=== PATIENT | male | born 1960 | race Caucasian/White ===

== ENCOUNTER 2016-08-20 19:06 | Emergency (ER) | payer OTHER ==
[2016-08-20 19:18] VITALS: RESP 18
[2016-08-20] MEDS ORDERED: HYDROmorphone 1 MG/ML 1 ML SYRINGE IVP STA (19:48)
[2016-08-20] MEDS ORDERED: ONDANSETRON 4 MG/2 ML VIAL IVP STA (19:48)
[2016-08-20] MEDS ORDERED: SODIUM CHLORIDE 0.9% 1,000 ML IV STA (19:48)
--- NOTE | 2016-08-20 19:53 | ED ---
General Adult HPI - General Chief complaint: Back Pain/Injury Stated complaint: Abd pain Time Seen by Provider: 08/20/16 19:41 Source: patient, RN notes reviewed Mode of arrival: ambulatory Limitations: no limitations - History of Present Illness Initial comments: 56-year-old male presents emergency Department chief complaint right flank pain. Patient states it started 5 days ago states that he had some cramping in his back region states that he bent over and had sudden onset of stabbing pain. Patient states that after it started nothing made it feel better or worse. He states that over the last 4-5 hours pain is actually's somewhat minimized. He does admit to some darker urine color and follow order. He has no history UTIs or kidney stones. Patient denies any vomiting states he states that some nausea as constipation or diarrhea. Denies fever, chills. Patient had a prior abdominal surgeries including bowel resection, prostate surgery. - Related Data Home Medications Medication Instructions Recorded Confirmed Allopurinol [Zyloprim] 300 mg PO DAILY 09/30/14 08/20/16 Omeprazole [PriLOSEC] 20 mg PO DAILY 09/30/14 08/20/16 Aspirin EC [Ecotrin Low Dose] 81 mg PO DAILY 08/20/16 08/20/16 HYDROcodone/APAP 10-325MG [[place] 1 tab PO BID PRN 08/20/16 08/20/16 10-325] Levothyroxine Sodium 300 mcg PO DAILY 08/20/16 08/20/16 Lisinopril [Zestril] 2.5 mg PO DAILY 08/20/16 08/20/16 Metoprolol Succinate (ER) [Toprol 50 mg PO DAILY 08/20/16 08/20/16 Xl] Simvastatin(Unknown Dose) 1 tab PO DAILY 08/20/16 08/20/16 Previous Rx's Medication Instructions Recorded Nitroglycerin Sl Tabs [Nitrostat] 0.4 mg SUBLINGUAL Q5M PRN #25 tab 10/02/14 Cyclobenzaprine [Flexeril] 10 mg PO TID PRN #15 tab 08/20/16 Ketorolac [Toradol] 10 mg PO Q8HR #15 tab 08/20/16 Allergies Allergy/AdvReac Type Severity Reaction Status Date / Time No Known Allergies Allergy Verified 08/20/16 19:45 Review of Systems ROS Statement: Those systems with pertinent positive or pertinent negative responses have been documented in the HPI. ROS Other: All systems not noted in ROS Statement are negative. Past Medical History Past Medical History: Coronary Artery Disease (CAD), Chest Pain / Angina, Myocardial Infarction ([place]), Prostate Disorder Additional Past Medical History / Comment(s): prostate CA, colostomy reversal, stomach ca, gout, reactive arthritis Last Myocardial Infarction Date:: 09/29/2014 History of Any Multi-Drug Resistant Organisms: None Reported Past Surgical History: Orthopedic Surgery Additional Past Surgical History / Comment(s): stentx1 RCA, colostomy and reversal, knee surg, prostate and stomach ca surg Past Anesthesia/Blood Transfusion Reactions: No Reported Reaction Past Psychological History: No Psychological Hx Reported Smoking Status: Current every day smoker Past Alcohol Use History: None Reported Past Drug Use History: None Reported - Past Family History Father Additional Family Medical History / Comment(s): of ETOH General Exam Limitations: no limitations General appearance: alert, in no apparent distress Head exam: Present: atraumatic, normocephalic, normal inspection Respiratory exam: Present: normal lung sounds bilaterally. Absent: respiratory distress, wheezes, rales, rhonchi, stridor Cardiovascular Exam: Present: regular rate, normal rhythm, normal heart sounds. Absent: systolic murmur, diastolic murmur, rubs, gallop, clicks GI/Abdominal exam: Present: soft, normal bowel sounds, other (Old scars noted). Absent: distended, tenderness, guarding, rebound, rigid Back exam: Present: full ROM, CVA tenderness (R). Absent: tenderness, CVA tenderness (L), paraspinal tenderness, vertebral tenderness Neurological exam: Present: alert, oriented X3, CN II-XII intact Skin exam: Present: warm, dry, intact, normal color. Absent: rash Course Vital Signs 08/20/16 08/20/16 08/20/16 19:14 20:23 21:08 Temperature 98.5 F Pulse Rate 80 68 62 Respiratory 18 18 18 Rate Blood Pressure 120/73 126/84 108/68 O2 Sat by Pulse 98 95 96 Oximetry Medical Decision Making - Medical Decision Making 56-year-old male presented emergency from for right flank pain. Patient laboratory, CT shows no acute abnormality. Patient has had a recent passed stone or has muscle skeletal pain. Patient states it does feel different than his normal back pain. Patient be discharged with pain medication follow-up on Tuesday with primary care physician return parameters were discussed. - Lab Data Result diagrams: 08/20/16 20:05 08/20/16 20:05 Lab Results 08/20/16 08/20/16 08/20/16 Range/Units 20:05 20:05 20:25 WBC 7.8 (3.8-10.6) k/uL RBC 4.89 (4.30-5.90) m/uL Hgb 15.1 (13.0-17.5) gm/dL Hct 40.9 (39.0-53.0) % MCV 83.6 (80.0-100.0) fL MCH 30.9 (25.0-35.0) pg MCHC 36.9 (31.0-37.0) g/dL RDW 13.9 (11.5-15.5) % Plt Count 225 (150-450) k/uL Neutrophils % 48 % Lymphocytes % 42 % Monocytes % 5 % Eosinophils % 2 % Basophils % 0 % Neutrophils # 3.8 (1.3-7.7) k/uL Lymphocytes # 3.3 (1.0-4.8) k/uL Monocytes # 0.4 (0-1.0) k/uL Eosinophils # 0.2 (0-0.7) k/uL Basophils # 0.0 (0-0.2) k/uL Sodium 141 (137-145) mmol/L Potassium 4.2 (3.5-5.1) mmol/L Chloride 110 H (98-107) mmol/L Carbon Dioxide 20 L (22-30) mmol/L Anion Gap 11 mmol/L BUN 12 (9-20) mg/dL Creatinine 0.79 (0.66-1.25) mg/dL Est GFR (MDRD) Af Amer >60 (>60 ml/min/1.73 sqM) Est GFR (MDRD) Non-Af >60 (>60 ml/min/1.73 sqM) Glucose 104 H (74-99) mg/dL Calcium 9.0 (8.4-10.2) mg/dL Total Bilirubin 0.7 (0.2-1.3) mg/dL AST 44 (17-59) U/L ALT 37 (21-72) U/L Alkaline Phosphatase 82 (38-126) U/L Total Protein 7.3 (6.3-8.2) g/dL Albumin 4.1 (3.5-5.0) g/dL Amylase 52 (30-110) U/L Lipase 200 (23-300) U/L Urine Color Yellow Urine Appearance Clear (Clear) Urine pH 5.5 (5.0-8.0) Ur Specific [place] 1.019 (1.001-1.035) Urine Protein Negative (Negative) Urine Glucose (UA) Negative (Negative) Urine Ketones Negative (Negative) Urine Blood Negative (Negative) Urine Nitrite Negative (Negative) Urine Bilirubin Negative (Negative) Urine Urobilinogen 2.0 (<2.0) mg/dL Ur Leukocyte Esterase Negative (Negative) Disposition Clinical Impression: Right flank pain, Back pain Disposition: HOME SELF-CARE Condition: Stable Instructions: Acute Low Back Pain (ED), Flank Pain (ED) Additional Instructions: Please return to the Emergency Department if symptoms worsen or any other concerns. Prescriptions: Cyclobenzaprine [Flexeril] 10 mg PO TID PRN #15 tab PRN Reason: Muscle Spasm Ketorolac [Toradol] 10 mg PO Q8HR #15 tab Referrals: Madan Powell MD [Primary Care Provider] - 1-2 days Time of Disposition: 21:38
[2016-08-20 20:23] LABS: Basophils % (A) 0 %; CH 30.6; CHCM 36.7; Eosinophils # (A) 0.2 k/uL (0-0.7); Eosinophils % (A) 2 %; HCT 40.9 % (39.0-53.0); HDW 2.99; HGB 15.1 gm/dL (13.0-17.5); Luc # (Auto) 0.15; Luc % (Auto) 2; Lymphocytes # (A) 3.3 k/uL (1.0-4.8); Lymphocytes % (A) 42 %; MCH 30.9 pg (25.0-35.0); MCHC 36.9 g/dL (31.0-37.0); MCV 83.6 fL (80.0-100.0); Mean Platelet Volume 6.9; Monocytes # (A) 0.4 k/uL (0-1.0); Monocytes % (A) 5 %; Neutrophils # (A) 3.8 k/uL (1.3-7.7); Neutrophils % (A) 48 %; RBC 4.89 m/uL (4.30-5.90); RDW 13.9 % (11.5-15.5); WBC 7.8 k/uL (3.8-10.6); WBC (Perox) 7.17
--- NOTE | 2016-08-20 20:35 | XR ---
EXAMINATION TYPE: XR KUB DATE OF EXAM: 08/20/2016 COMPARISON: NONE HISTORY: Pain TECHNIQUE: 2 views FINDINGS: There is no sign of intestinal obstruction or pneumoperitoneum. Fecal pattern is normal. Th ere are numerous surgical clips in the pelvis. Lung bases are clear. There are no pathologic calcific ations over the kidneys. IMPRESSION: Nonacute abdomen.
[2016-08-20 20:36] LABS: ALT 37 U/L (21-72); AST 44 U/L (17-59); Alkaline Phosphatase 82 U/L (38-126); Amylase 52 U/L (30-110); Anion Gap 11 mmol/L; Blood Urea Nitrogen 12 mg/dL (9-20); Carbon Dioxide 20 mmol/L (22-30); Chloride 110 mmol/L (98-107); Glucose 104 mg/dL (74-99); Non-African American GFR(MDRD) >60 (>60 ml/min/1.73 sqM); Potassium 4.2 mmol/L (3.5-5.1); Sodium 141 mmol/L (137-145); Total Bilirubin 0.7 mg/dL (0.2-1.3); Total Protein 7.3 g/dL (6.3-8.2)
[2016-08-20 20:41] LABS: Appearance,Urine Clear (Clear); Bilirubin,Urine Negative (Negative); Glucose,Urine (UA) Negative (Negative); Ketones,Urine Negative (Negative); Leukocyte Esterase,Urine Negative (Negative); Nitrite,Urine Negative (Negative); PH, Urine 5.5 (5.0-8.0); Protein,Urine Negative (Negative); Specific Gravity,Urine 1.019 (1.001-1.035); UA Billing (MACRO vs. MICRO) CHEM
--- NOTE | 2016-08-20 21:08 | CT ---
EXAMINATION TYPE: CT abdomen pelvis wo con DATE OF EXAM: 08/20/2016 COMPARISON: NONE HISTORY: Right flank pain. CT DLP: 1260.50 mGycm Automated exposure control for dose reduction was used. TECHNIQUE: Helical acquisition of images was performed from the lung bases through the pelvis. FINDINGS: Lung bases are clear. There is no pleural effusion. Liver spleen pancreas gallbladder appear normal. Bile ducts are not dilated. There is no adrenal mass . Kidneys have normal size and contour. There is no hydronephrosis. There is no retroperitoneal adeno lucrecia. There is no ascites. Appendix appears normal. There are surgical clips in the rectosigmoid col on. Bladder distends smoothly. There is no free fluid. I see no bony destructive process. There is a hemivertebra of S1 noted. IMPRESSION: NORMAL APPENDIX. NO EVIDENCE OF RENAL STONE OR OBSTRUCTION. NO SIGN OF ACUTE ABDOMEN AND PELVIS.
[2016-08-20 22:13] VITALS: BP 114/59; PULSE 61; TEMP 97.7
== END 2016-08-20 22:13 | disposition home or self-care (01) ==
LOC: EC 19:06
DX: R10.9 Unspecified abdominal pain (principal); M54.9 Dorsalgia, unspecified; M10.9 Gout, unspecified; I25.10 Atherosclerotic heart disease of native coronary artery without angina pectoris; I25.2 Old myocardial infarction; F17.200 Nicotine dependence, unspecified, uncomplicated; Z85.028 Personal history of other malignant neoplasm of stomach; Z85.46 Personal history of malignant neoplasm of prostate; Z79.82 Long term (current) use of aspirin; Z79.899 Other long term (current) drug therapy
CPT/HCPCS: 99284; 96374; 96375; 96361; 36415; 80053; 82150; 83690; 85025; 81003; 74000; 74176; J2405; J1170

== ENCOUNTER → 2016-08-24 | Outpatient (CLI) | payer OTHER ==
--- NOTE | 2016-08-25 11:36 | CONS ---
DATE OF SERVICE: 08/24/2016 This is a very pleasant 56-year-old gentleman who follows with Dr. Powell as his primary care physician. He has a history of coronary artery disease with previous stent placement, myocardia infarction, hypothyroidism, prostate cancer , status post prostatectomy. He also had a bowel resection secondary to a ruptured bowel with colostomy and subsequent colostomy reversal. He also has arthritis and gout. The patient was diagnosed with obstructive sleep apnea with an AHI of 82 and he has been on a pressure of 13. This was many years ago. Unfortunately, the patient wore his CPAP machine for several months and actually improved quite significantly and based on this, he stopped wearing the machine for over a year. The last six months or so, he has been having significant trouble sleeping at night. He tried to reapply the CPAP machine and mask but the pressure was too high and he was not able to tolerate it. He is here for reconsultation in hopes of getting back on a CPAP machine. His main complaints at this time are waking up tired, problems with concentration, irritability, depression, anxiety and worries about his sleep pattern because he is truly not sleeping. He has had excessive fatigue and sleepiness. He does have snoring and nocturia. He does have issues with dry mouth and restless legs. Past medical history is coronary artery disease with stent placement, obstructive sleep apnea, prostate cancer, status post prostatectomy and hypothyroidism. Past surgical history includes stent placement, colostomy with subsequent reversal, knee surgery, prostatectomy, and stomach surgery. SOCIAL HISTORY: The patient is a current everyday smoker, he denies excessive alcohol use or illicit drug use. Allergies are no known allergies. HOME MEDICATIONS: Toradol 10 mg, Flexeril 10 mg t.i.d. p.r.n., Nitrostat sublingual p.r.n., simvastatin unsure of dose, one tablet daily, Zyloprim 300 mg daily, Prilosec 20 mg daily, aspirin 81 mg daily, [place] 10-325 mg 1 p.o. b.i.d., levothyroxine 300 mcg daily, Zestril 2.5 mg daily, metoprolol 50 mg daily. REVIEW OF SYSTEMS: A 14-point review of systems was conducted, all negative other than what is mentioned in the HPI. On physical exam, the patient is 5 foot 10 inches, he weights 274 pounds, BMI of 39, blood pressure 132/77, heart rate 92, respirations 16, temperature is 97.8. He is 98% O2 saturation on room air. His head is normocephalic, sclerae is nonicteric. There is ( ) in the posterior pharynx. His neck is short, supple, trachea midline. Lungs are clear , heart is regular, abdomen is obese, soft, nontender. There is no clubbing, no cyanosis, peripheral pulses are intact. IMPRESSION: 1. Obstructive sleep apnea with an apnea-hypopnea index of 82, was initially on the CPAP of 13 cm of water; however, patient has not worn it in greater than 1 year. 2. Obesity. 3. Coronary artery disease with previous stent placement. 4. History of prostate cancer, status post prostatectomy. 5. Hypothyroidism. 6. Hyperlipidemia. 7. Hypertension. 8. History of bowel perforation with subsequent resection and colostomy and followup reversal. 9. Arthritis. 10. Chronic ongoing tobacco dependence. PLAN: The patient was seen and evaluated by Dr. Chambers and the patient is having symptoms and willing to have a CPAP titration study so that he can get realigned with his CPAP machine. The patient states he will be much more compliant once he is refitted with a new mask, probably a new machine and possibly new settings. He will come for 1 night titration and then a followup for which he states he will plan to do as he does have a history of noncompliance with previous followup. In the interim, will continue with his current medication. Will keep his CPAP machine for now and will put him on a schedule as soon as possible. MILA
== END ==
LOC: SLEEP 15:00
PROVIDERS: ATTEND Internal Medicine Critical Care Medicine
DX: G47.33 Obstructive sleep apnea (adult) (pediatric) (principal); E66.9 Obesity, unspecified; E03.9 Hypothyroidism, unspecified; E78.5 Hyperlipidemia, unspecified; I10 Essential (primary) hypertension; M19.90 Unspecified osteoarthritis, unspecified site; Z90.89 Acquired absence of other organs; Z79.899 Other long term (current) drug therapy; Z79.82 Long term (current) use of aspirin
CPT/HCPCS: 99211

== ENCOUNTER → 2016-11-23 | Outpatient (CLI) | payer OTHER ==
--- NOTE | 2016-11-23 15:58 | PN ---
PROGRESS NOTE The patient is coming in for a compliancy check. This patient was diagnosed having severe BRETT with an AHI of 82 and currently utilizing CPAP with a pressure of 30 cm of water. He underwent recent titration, coming in for a CPAP compliance evaluation. On today's evaluation, the patient is coming in for his CPAP compliancy evaluation. He is doing well and reports improved sleep quality. He is waking up refreshed and alert during the day. No major hypersomnia or sleepiness. His CPAP pressures at 13 cm of water. His compliance data showed that he has used CPAP for more than 4 hours 29 out of 30 days and his average CPAP is around 5.7 hours per night. Leak factor is 10 L and the patient's AHI is down to 0.8. He has not gained any weight since his last evaluation. He is trying to lose weight. His [place] score is down to 3. He is utilizing a Simplus full face mask. He is benefitting from the treatment. He has no specific complaints. He is wondering whether we can lower the CPAP pressure down to lower levels. His current vital signs: BP is 122/70, pulse 83, respirations 16, temperature 97.5, weight is 290. Saturation is 95% on room air. [place] score 3. General appearance calm comfortable. HEENT short neck, crowding posterior pharynx. No goiter. No neck mass. Lungs clear to auscultation. Heart sounds are regular rate and rhythm. Normal S1, S2. No S3, S4. No murmurs. Abdomen is soft, nontender. No organomegaly. EXTREMITIES: No edema. No cyanosis or clubbing. Neuro: Alert x3. No focal neurological deficits. Psych is negative for anxiety or depression. His mood is appropriate. IMPRESSION: 1. Symptomatic obstructive sleep apnea severe with an AHI of 82, currently under successful therapy CPAP therapy at a pressure of 13 cm of water. The choice of the pressure was done during the recent CPAP titration. The patient has obtained a new Resmet CPAP unit. 2. Morbid obesity. 3. Coronary artery disease. 4. Prostate cancer. 5. Hypothyroidism. 6. Periodic limb movements. PLAN: 1. Recheck the CPAP titration and lower the pressure down to 11 cm of water. 2. Continue the Simplus full face mask. 3. Encourage weight loss. 4. Add humidity up to 4. 5. Drop the REM time down to 20 minutes. 6. Give the patient heated humidity. 7. We will continue to follow. See me back in a year's time in follow up, earlier if needed. MMODL / IJN: [id number] /
== END ==
LOC: SLEEP 14:05
PROVIDERS: ATTEND Internal Medicine Critical Care Medicine
DX: G47.33 Obstructive sleep apnea (adult) (pediatric) (principal); E66.01 Morbid (severe) obesity due to excess calories; C61 Malignant neoplasm of prostate; E03.9 Hypothyroidism, unspecified; I25.10 Atherosclerotic heart disease of native coronary artery without angina pectoris; G47.61 Periodic limb movement disorder

== ENCOUNTER 2019-09-12 17:49 | Emergency (ER) | payer OTHER ==
[2019-09-12 17:58] VITALS: TEMP 98.1
--- NOTE | 2019-09-12 18:02 | ED ---
General Adult HPI - General Chief complaint: Extremity Injury, Upper Stated complaint: left wrist injury Time Seen by Provider: 09/12/19 18:00 Source: patient Mode of arrival: wheelchair Limitations: no limitations - History of Present Illness Initial comments: Patient presents the ED stating that he accidentally tripped when he stepped into a hole in the ground about 1.5 hours ago, causing him to fall down. Patient states that he used his left arm to break his fall, and in doing so, his left wrist "snapped". Patient is complaining of having diffuse left wrist pain since then. Patient denies sustaining any other injuries, and he denies having any other site of pain. Patient denies head injury, headache, focal neuro deficit, neck/back/lower show any pain, chest pain, dyspnea, dizziness, abdominal pain, nausea/vomiting, or any other symptoms or complaints. - Related Data Home Medications Medication Instructions Recorded Confirmed Allopurinol [Zyloprim] 300 mg PO BID 09/30/14 09/12/19 Omeprazole [PriLOSEC] 20 mg PO DAILY 09/30/14 09/12/19 Aspirin EC [Ecotrin Low Dose] 81 mg PO DAILY 08/20/16 09/12/19 HYDROcodone/APAP 10-325MG [[place] 1 tab PO BID 08/20/16 09/12/19 10-325] Metoprolol Succinate (ER) [Toprol 50 mg PO DAILY 08/20/16 09/12/19 Xl] lisinopriL [Zestril] 2.5 mg PO DAILY 08/20/16 09/12/19 Levothyroxine Sodium [Synthroid] 200 mcg PO DAILY 09/12/19 09/12/19 Rosuvastatin Calcium [Crestor] 2.5 mg PO DAILY 09/12/19 09/12/19 Allergies Allergy/AdvReac Type Severity Reaction Status Date / Time No Known Allergies Allergy Verified 09/12/19 18:48 Review of Systems ROS Statement: Those systems with pertinent positive or pertinent negative responses have been documented in the HPI. ROS Other: All systems not noted in ROS Statement are negative. Past Medical History Past Medical History: Coronary Artery Disease (CAD), Chest Pain / Angina, Myocardial Infarction ([place]), Prostate Disorder Additional Past Medical History / Comment(s): prostate CA, colostomy reversal, stomach ca, gout, reactive arthritis Last Myocardial Infarction Date:: 09/29/2014 History of Any Multi-Drug Resistant Organisms: None Reported Past Surgical History: Orthopedic Surgery Additional Past Surgical History / Comment(s): stentx1 RCA, colostomy and reversal, knee surg, prostate and stomach ca surg Past Anesthesia/Blood Transfusion Reactions: No Reported Reaction Past Psychological History: No Psychological Hx Reported Smoking Status: Current every day smoker Past Alcohol Use History: Rare Past Drug Use History: None Reported - Past Family History Father Additional Family Medical History / Comment(s): of ETOH General Exam Limitations: no limitations General appearance: alert, in no apparent distress Head exam: Present: atraumatic, normocephalic Eye exam: Present: normal appearance, EOMI ENT exam: Present: mucous membranes moist Neck exam: Absent: tenderness Respiratory exam: Present: normal lung sounds bilaterally. Absent: respiratory distress, wheezes, rales, rhonchi Cardiovascular Exam: Present: regular rate, normal rhythm, normal heart sounds, other (Normal radial pulses bilaterally) GI/Abdominal exam: Present: soft. Absent: distended, tenderness, guarding Extremities exam: Present: other (Diffuse left wrist swelling and tenderness) Back exam: Present: normal inspection. Absent: tenderness Neurological exam: Present: alert, oriented X3. Absent: motor sensory deficit Psychiatric exam: Present: normal affect, normal mood Skin exam: Present: warm, dry, intact, normal color Course Vital Signs 09/12/19 09/12/19 09/12/19 17:54 17:58 18:58 Temperature 98.1 F Pulse Rate 83 83 Respiratory 18 18 18 Rate Blood Pressure 92/62 121/78 O2 Sat by Pulse 97 96 Oximetry 09/12/19 09/12/19 09/12/19 20:14 20:19 20:24 Temperature Pulse Rate 79 84 79 Respiratory 19 18 18 Rate Blood Pressure 121/78 128/78 124/76 O2 Sat by Pulse 98 99 99 Oximetry 09/12/19 20:29 Temperature Pulse Rate 84 Respiratory 19 Rate Blood Pressure 131/69 O2 Sat by Pulse 99 Oximetry - Reevaluation(s) Reevaluation #1: 09/12/19 19:35 Case, H&P and left wrist x-ray findings were discussed with Dr. Perez (orthopedic surgery). He has reviewed the patient's films himself. He recommends attempting to reduce the patient's distal radius fracture under sedation. He recommends then obtaining a CT scan of the patient's left wrist. He has no further recommendations at this time. 09/12/19 19:[address] Perez and his recommendations were discussed with the patient. I have discussed with the patient the option for reduction under moderate sedation versus with hematoma block. Patient states that he prefers reduction under moderate sedation. Patient was explained the risks of moderate sedation, and he was able to verbalize understanding of these risks. Patient has signed consent form for fracture reduction under moderate sedation. 09/12/19 21:36 Case was discussed with Dr. Perez once more. He recommends discharging the patient home and having the patient follow-up with him in his clinic tomorrow. He has no further recommendations at this time. 09/12/19 21:44 Patient and his friend are aware the patient's imaging results and my discussions with Dr. Perez as above. Patient feels comfortable going home with his friend at this time. He was counseled about wrist fractures. He was clearly explained return and follow-up instructions. He was instructed to follow up with Dr. Perez in his clinic tomorrow and to call in the morning for an appointment time. Procedures - Orthopedic Fracture Reduction Fracture #1 Consent Obtained: verbal consent, written consent Side: left Fracture Reduction Location: radius Analgesia: procedural sedation Technique: direct manipulation Post Reduction X-rays Demonstrate: acceptable reduction Post-Reduction Neuro Exam: intact Post-Reduction Vascular Exam: intact Splint Applied: Yes Patient Tolerated Procedure: well, no complications - Procedural Sedation Procedural Sedation Start Time: 20:14 Procedural Sedation Stop Time: 20:24 Indications: fracture/dislocation reduction ASA Class: II Mallampati Airway Score: 2 Preparation: court recording monitor applied, pulse oximeter, capnometry used, supplemental O2 applied, suction/airway equipment at bedside, IV secured Fentanyl: IV Fentanyl Dose: 75 IV Propofol Dose (mgs): 120 Complications: none Patient Tolerated Procedure: well, no complications Additional Comments: Patient was unsure of last PO intake, but he reports that it was several hours ago. Medical Decision Making - Medical Decision Making Patient's wrist fractures were reduced and splinted myself in the ED. Patient has recovered completely from his procedural sedation. Will discharge patient home with his friend at this time. Patient was instructed to, and agrees to, follow-up with orthopedic surgery as an outpatient tomorrow. - Radiology Data Radiology results: report reviewed (Left wrist x-rays: Comminuted distal left radial fracture with displaced fracture fragments; there is some dorsal angulation; displaced ulnar styloid fracture; CT left wrist without contrast: Distal radial fractures are comminuted and displaced, displaced ulnar styloid fracture ) Disposition Clinical Impression: Left wrist fracture Disposition: HOME SELF-CARE Condition: Stable Instructions (If sedation given, give patient instructions): Moderate Sedation (ED), Wrist Injury (ED) Additional Instructions: Return to the ER immediately should you develop new or worsening pain, a fever, chest pain, shortness of breath, feeling dizzy or faint, or new or worsening symptoms. Follow up with Dr. Perez (orthopedic surgery) in his clinic tomorrow (call in the morning for an appointment). Is patient prescribed a controlled substance at d/c from ED?: No Referrals: Mahamed English MD [Primary Care Provider] - 1-2 days Ernst Perez MD [STAFF PHYSICIAN] - 1-2 days Time of Disposition: 21:47
--- NOTE | 2019-09-12 18:40 | XR ---
Left wrist HISTORY: Trauma and pain 4 views the left wrist There is a comminuted distal left radial fracture with displaced fracture fragments, likely extension into the radial ulnar joint, radiocarpal joint extension not entirely excluded. There is some dorsal angulation, displaced ulnar styloid fracture is present. Osteoarthritic changes are noted incidental ly at the carpometacarpal joint of the first digit. IMPRESSION: Left wrist fractures
[2019-09-12] MEDS ORDERED: oxyCODONE-APAP 5-325MG 1 EACH TAB PO STA (19:07)
[2019-09-12] MEDS ORDERED: SODIUM CHLORIDE 0.9% 500 ML 500 ML IV ONE (19:46)
[2019-09-12] MEDS ORDERED: PROPOFOL 10 MG/ML 20 ML VIAL IV ONE ×2 (20:02→20:14)
[2019-09-12] MEDS ORDERED: fentaNYL (PF) 50 MCG/ML 2 ML AMP IVP STA (20:03)
--- NOTE | 2019-09-12 21:27 | CT ---
EXAMINATION TYPE: CT wrist LT wo con DATE OF EXAM: 09/12/2019 COMPARISON: Plain film same date HISTORY: left wrist pain CT DLP: 262.5 mGycm Automated exposure control for dose reduction was used. FINDINGS: Comminuted distal radial fracture with displaced distal ulnar fracture again noted, no evident intra- articular involvement. There is soft tissue swelling present. Slight impaction is noted laterally. IMPRESSION: DISTAL RADIAL FRACTURES ARE COMMINUTED AND DISPLACED, DISPLACED ULNAR STYLOID FRACTURE
[2019-09-12] MEDS ORDERED: HYDROmorphone 1 MG/ML 1 ML SYRINGE IVP STA (21:30)
[2019-09-12] MEDS ORDERED: ACET/COD 300 MG/30 MG STARTER PACK 6 TAB BTL PO STA (21:46)
[2019-09-12 22:40] VITALS: BP 136/98; PULSE 79; RESP 18
== END 2019-09-12 21:55 | disposition home or self-care (01) ==
LOC: EC 17:49
DX: S52.592A Other fractures of lower end of left radius, initial encounter for closed fracture (principal); S52.612A Displaced fracture of left ulna styloid process, initial encounter for closed fracture; I25.119 Atherosclerotic heart disease of native coronary artery with unspecified angina pectoris; I25.2 Old myocardial infarction; F17.200 Nicotine dependence, unspecified, uncomplicated; M10.9 Gout, unspecified; Z79.82 Long term (current) use of aspirin; Z79.899 Other long term (current) drug therapy; Z85.46 Personal history of malignant neoplasm of prostate; Z85.028 Personal history of other malignant neoplasm of stomach; W01.0XXA Fall on same level from slipping, tripping and stumbling without subsequent striking against object, initial encounter; Y92.89 Other specified places as the place of occurrence of the external cause
CPT/HCPCS: 73110; 73200; 99284; 96374; 96375 ×2; 96361; 25605; 99152; J3010; J1170; J2704

== ENCOUNTER → 2019-09-21 | Outpatient (CLI) | payer OTHER | END | disposition home or self-care (01) | LOC: LABWHC1 10:30 | PROVIDERS: ATTEND Orthopaedic Surgery | DX: E55.9 Vitamin D deficiency, unspecified (principal) | CPT/HCPCS: 36415; 82306 ==

== ENCOUNTER → 2019-09-21 | Day surgery (SDC) | payer OTHER ==
[~2019-09-21] MED LIST: DEXAMETHASONE SOD PHOSPHATE 10 MG/ML 1 ML VIAL IV ONE; DEXAMETHASONE SOD PHOSPHATE 4 MG/ML 1 ML VIAL ONE; FAMOTIDINE 20 MG/2 ML VIAL IV PRN; GLYCOPYRROLATE 0.2 MG/ML 2 ML VIAL ONE; HYDROcodone/APAP 10-325MG 1 EACH TAB ONE; HYDROcodone/APAP 10-325MG 1 EACH TAB PO ONE; HYDROmorphone (PF) 1 MG/ML ONE; HYDROmorphone 0.5 MG/0.5 ML SYRINGE IVP PRN; LACTATED RINGERS 1,000 ML IV SCH; LIDOCAINE 1% (10MG/ML) FOR IV START INTRADERMA PRN; LIDOCAINE 1% INJ 10MG/ML (20 ML MDV) ONE; LIDOCAINE 1%-EPI 1:100,000 20 ML VIAL SQ ONE; METOPROLOL SUCCINATE (ER) 50 MG TAB.ER.24H PO STA; MIDAZOLAM 2 MG/2 ML VIAL IV PRN; MIDAZOLAM 2 MG/2 ML VIAL ONE; NEOSTIGMINE 1 MG/ML 10 ML VIAL ONE; ONDANSETRON 4 MG/2 ML VIAL IVP PRN; ONDANSETRON 4 MG/2 ML VIAL ONE; PROPOFOL 10 MG/ML 20 ML VIAL IV ONE; ROCURONIUM BROMIDE 10 MG/ML 5 ML VIAL IV ONE; ROPIVACAINE 5 MG/ML 30 ML VIAL ONE; SODIUM CHLORIDE 0.9% 50 ML with ceFAZolin 1,000 MG IV ONE; fentaNYL (PF) 50 MCG/ML 2 ML AMP IV ONE; fentaNYL (PF) 50 MCG/ML 2 ML AMP ONE
[2019-09-21] MEDS: fentaNYL (PF) 50 MCG/ML 2 ML AMP IVP PRN ×2 (12:30→13:33)
--- NOTE | 2019-09-21 12:51 | P.ANPRN ---
Procedure Note - Anesthesia - Nerve Block Performed Left Infraclavicular Single Time Out Performed: Yes Date of Procedure: 09/21/19 Procedure Start Time: : Procedure Stop Time: : Location of Patient: PreOp Indication: Requested by Surgeon Specifically requested for management of pain by DrTrue: Keven Mensah Sedation Type: Sedate with meaningful contact maintained Preparation: Sterile Prep Position: Supine Needle Types: Pajunk Needle Gauge: 20, 21 Ultrasound used to visualize needle placement: Yes Ultrasound used to observe medication spread: Yes Injectate: 0.5% Ropivacaine (see comment for volume) (30 ml + 4 mg Dexamethason) Blood Aspirated: No Pain Paresthesia on Injection Noted: No Resistance on Injection: Normal Image Stored and Saved: Yes Events: Uneventful and Well Tolerated
[2019-09-21 16:17] VITALS: TEMP 96.8
[2019-09-21 17:06] VITALS: RESP 17
[2019-09-21 18:27] VITALS: BP 144/88; PULSE 88
--- NOTE | 2019-09-21 18:50 | XR ---
EXAMINATION TYPE: XR wrist complete LT DATE OF EXAM: 09/21/2019 COMPARISON: 09/12/2019 HISTORY: Postop TECHNIQUE: 3 views FINDINGS: There is a plate with screws fixing anteriorly the fracture of the distal radius. Fragments are in good anatomic position. There is ulnar styloid process fracture unchanged. IMPRESSION: There is good anatomic reduction of the radius fracture. No complicating process seen.
--- NOTE | 2019-09-21 20:43 | FL ---
EXAMINATION TYPE: FL guidance operating room DATE OF EXAM: 09/21/2019 COMPARISON: NONE HISTORY: ORIF left wrist TECHNIQUE: Fluoroscopy. FINDINGS: Fluoroscopic guidance was provided during procedure for performing physician. A total of 22 seconds of fluoroscopic time was utilized during the procedure and 0 spot images was acquired. Ple ase see operative report for additional details. IMPRESSION: As Above.
--- NOTE | 2019-09-21 21:47 | XR ---
EXAMINATION TYPE: XR wrist complete LT DATE OF EXAM: 09/21/2019 COMPARISON: NONE HISTORY: Postop TECHNIQUE: 4 views submitted FINDINGS: Fractures involving the distal radius and ulna again noted with postsurgical changes which appear to be in near anatomic alignment. IMPRESSION: Postsurgical change
--- NOTE | 2019-09-23 11:06 | P.OP ---
Date of Procedure: 09/21/19 Preoperative Diagnosis: Comminuted, displaced intra-articular left distal radius fracture with associated ulnar styloid fracture Postoperative Diagnosis: Comminuted, displaced intra-articular left distal radius fracture with associated ulnar styloid fracture Procedure(s) Performed: Open reduction and internal fixation of displaced intra-articular left distal radius fracture (>3 fragments: CPT 41962) Implants: Acumed Acu-Loc 2 volar distal radius plate (left, standard) with locking and cortical screws Anesthesia: MAGDALENOA, regional Surgeon: Keven Mensah Cottrell Operator #1: Lulu Burnette Estimated Blood Loss (ml): 10 Condition: stable Disposition: PACU Indications for Procedure: The patient is a 59-year-old male who sustained an injury to his left wrist after a mechanical fall, resulting in a displaced distal radius fracture. This was initially treated with closed reduction and splinting at an outside institution. Treatment options (along with associated risks and benefits) were discussed in the office. Based on the fracture pattern and amount of residual displacement, surgical stabilization was recommended in the form of open reduction and internal fixation. The patient expressed understanding and agreed with operative intervention. In preop, additional questions were addressed and the patient wished to proceed with surgery. Consent forms were signed. The surgical site was confirmed and marked preoperatively. Description of Procedure: The patient was administered a regional nerve block by the anesthesia team and was then brought to the operating suite and positioned supine with the operative limb on an arm board. All bony prominences were well-padded. General anesthesia and prophylactic antibiotics were administered uneventfully. A tourniquet was placed on the operative arm, which was then prepped and draped in standard, sterile fashion. A time-out was performed, confirming patient identifiers, the operative side, site and the procedure to be performed: all team members expressed agreement. The limb was exsanguinated with an Esmarch and the tourniquet was inflated. A volar FCR approach was utilized. The skin was incised sharply incised, curving gently at the wrist flexion crease. The subcutaneous tissues were spread, coagulating superficial vessels as needed. The radial artery was identified and protected throughout the case. The FCR sheath was released and the tendon was mobilized. The floor of the sheath was incised and blunt dissection was used to develop Paronas space. The pronator quadratus was identified but showed anatomic variation, with a tendinous band running longitudinally along its superficial/volar aspect, ending at the wrist capsule. There was a transverse rupture in the belly of the pronator at the level of the fracture. This was sharply extended along its radial border and & subperiosteally elevated ulnarly. The transitional fiber zone was sharply elevated distally. The fracture site was visualized. The primary fracture line was transverse across the metaphysis, with intra- articular extension into the proximal portion of the sigmoid notch with incongruity of the articular surface. There was a small butterfly fragment of the volar metaphysis and a larger fragment dorsally. The fracture site was opened and cleaned of hematoma and fibrous tissue. A manual reduction was attempted but the fracture was quite stiff and resistant to external reduction maneuvers. A Portage was inserted into the fracture site to release the dorsal capsule and impacted dorsal metaphysis, taking care to protect the extensor tendons. The volar metaphyseal butterfly fragment was reduced into place with a dental pick. A 0.062 K wire was inserted percutaneously into the radial styloid. The fracture was again manually reduced and the wire was advanced across the fracture and into metaphysis. This did not adequately maintain the radial height. The wire was backed out across the fracture site and a second wire was inserted into the styloid fragment. The wrist was maximally ulnar deviated and a Bishnu Kleinert elevator was used to mobilize and elevate the radial column. With the fracture held reduced, the percutaneous K wires were readvanced. The plate was selected (based on the patients anatomy and fracture pattern), positioned on the volar radius and provisionally pinned in place with K-wires. Plate position and fracture reduction were assessed on imaging. There was mild residual loss of radial column length, as well as some residual dorsal tilt. A subtle step-off was also noted along the volar metaphyseal cortex. The distal K wires were removed. The percutaneous wires were backed out across the fracture site. Using the plate as a reduction tool, the fracture was remanipulated and the wires were readvanced. Fracture reduction and plate position were assessed on imaging and found to be satisfactory. A cortical screw was drilled, measured and inserted into the oblong hole of the shaft. Distal locking screws were sequentially drilled, measured and inserted, confirming length and trajectory with fluoroscopy. Care was taken not to violate the intact portions of the dorsal cortex. Overall, the bone quality was quite good with fairly strong cortices. The provisional K-wires were removed. An additional cortical screw was drilled and inserted to further secure the plate to the metaphysis. The percutaneous K wires were removed. Final x-rays were obtained, including a 20 inclined lateral view, confirming extra-articular screw placement. The wrist was then ranged under live fluoroscopy - no motion of the fracture fragments or fixation construct was appreciated. Manual stress of the DRUJ demonstrated no gross instability. The wound was thoroughly irrigated with normal saline. The pronator and transitional fiber zone were repaired over the plate with interrupted Vicryl 2-0 sutures. The tourniquet was released after 82 minutes at 250 mmHg. Good hemostasis was obtained with manual pressure and electrocautery. The subcutaneous tissues were reapproximated with interrupted 3-0 Vicryl sutures. The incision was closed with interrupted 3-0 Nylon sutures. Local anesthetic with epinephrine was injected into the perioperative subcutaneous tissues for adjunct postoperative pain control and hemostasis. A sterile dressing was applied, followed by a resting volar plaster splint. All sponge, needle and instrument counts were correct at the end of the case. The patient tolerated the procedure well and was taken to the recovery room in stable condition.
== END ==
LOC: OR 11:06
PROVIDERS: ATTEND Orthopaedic Surgery
DX: S52.572A Other intraarticular fracture of lower end of left radius, initial encounter for closed fracture (principal); S52.612A Displaced fracture of left ulna styloid process, initial encounter for closed fracture; I11.9 Hypertensive heart disease without heart failure; I25.10 Atherosclerotic heart disease of native coronary artery without angina pectoris; E78.5 Hyperlipidemia, unspecified; E03.9 Hypothyroidism, unspecified; G47.33 Obstructive sleep apnea (adult) (pediatric); G89.29 Other chronic pain; E66.9 Obesity, unspecified; M19.90 Unspecified osteoarthritis, unspecified site; K21.9 Gastro-esophageal reflux disease without esophagitis; F17.210 Nicotine dependence, cigarettes, uncomplicated; Z79.82 Long term (current) use of aspirin; Z79.890 Hormone replacement therapy; Z79.899 Other long term (current) drug therapy; Z90.49 Acquired absence of other specified parts of digestive tract; Z85.46 Personal history of malignant neoplasm of prostate; Z99.89 Dependence on other enabling machines and devices; W01.0XXA Fall on same level from slipping, tripping and stumbling without subsequent striking against object, initial encounter; Z68.39 Body mass index [BMI] 39.0-39.9, adult
CPT/HCPCS: 25609; 64415; 76942; 84132; 73110; C1713; J2250; J1100 ×2; J2710; J0690 ×2; J2405; J2001; J3010; J1170 ×2; J2795; J2704; 64450

== ENCOUNTER 2022-01-28 20:45 | Inpatient (IN) | payer OTHER ==
[2022-01-28] MEDS ORDERED: ASPIRIN 81 MG PO STA (21:48)
--- NOTE | 2022-01-28 21:53 | ED ---
General Adult HPI - General Chief complaint: Chest Pain Stated complaint: Chest pain Time Seen by Provider: 01/28/22 21:37 Source: patient Mode of arrival: ambulatory Limitations: no limitations - History of Present Illness Initial comments: This patient is a 61-year-old man who presents with a constellation of symptoms that started last night when he was trying to go to sleep. The patient stated that it felt like his heart was racing. He states it was difficult for him to get to sleep but he finally did sleep. He was feeling better in the morning and then the racing heartbeat return in the morning. He went to the pharmacy and had his blood pressure and heart rate checked and he states his heart rate was in the 150s. The pharmacist made a recommendation that he take an extra tablet of his beta adan and that he should probably go to the emergency department to be checked. The patient did take an extra dose of the medication, and his heart rate had slowed to the 90s but then the symptoms recurred. The patient has at times had some heaviness in the center of his chest but he is not having pain now. He notes that by arrival here his heart rate had gone back down. Onset/Timin -: hour(s) Location: chest Severity scale (1-10): 0 Consistency: now resolved Improves with: medication Worsens with: none Associated Symptoms: chest pain, shortness of breath Treatments Prior to Arrival: other (Metoprolol XL) - Related Data Home Medications Medication Instructions Recorded Confirmed Omeprazole [PriLOSEC] 20 mg PO DAILY 09/30/14 01/29/22 allopurinoL [Zyloprim] 600 mg PO DAILY 09/30/14 01/29/22 Aspirin EC [Ecotrin Low Dose] 81 mg PO DAILY 08/20/16 01/29/22 HYDROcodone/APAP 10-325MG [[place] 1 tab PO TID 08/20/16 01/29/22 10-325] Metoprolol Succinate (ER) [Toprol 50 mg PO DAILY 08/20/16 01/29/22 XL] lisinopriL [Zestril] 2.5 mg PO DAILY 08/20/16 01/29/22 Levothyroxine Sodium [Synthroid] 200 mcg PO [id number] 09/12/19 01/29/22 Albuterol Inhaler [Ventolin Hfa 1 - 2 puff INHALATION RT-QID PRN 01/29/22 01/29/22 Inhaler] Previous Rx's Medication Instructions Recorded Atorvastatin [Lipitor] 40 mg PO DAILY #30 tab 01/31/22 Isosorbide Mononitrate ER [Imdur] 30 mg PO DAILY #30 tab 01/31/22 Nitroglycerin Sl Tabs [Nitrostat] 0.4 mg SUBLINGUAL Q5M PRN #30 tab 01/31/22 Allergies Allergy/AdvReac Type Severity Reaction Status Date / Time No Known Allergies Allergy Verified 01/29/22 07:06 Review of Systems ROS Statement: Those systems with pertinent positive or pertinent negative responses have been documented in the HPI. ROS Other: All systems not noted in ROS Statement are negative. Constitutional: Denies: fever, chills, weakness Eyes: Denies: vision change Respiratory: Reports: dyspnea. Denies: cough, wheezes, hemoptysis Cardiovascular: Reports: as per HPI, chest pain, palpitations. Denies: dyspnea on exertion, orthopnea, edema, syncope Gastrointestinal: Denies: abdominal pain, nausea, vomiting, diarrhea Genitourinary: Denies: dysuria, hematuria Musculoskeletal: Denies: back pain Skin: Denies: rash Neurological: Denies: headache, weakness, numbness Past Medical History Past Medical History: Coronary Artery Disease (CAD), Chest Pain / Angina, Myocardial Infarction (CT), Prostate Disorder Additional Past Medical History / Comment(s): prostate CA, colostomy reversal, stomach ca, gout, reactive arthritis Last Myocardial Infarction Date:: 09/29/2014 History of Any Multi-Drug Resistant Organisms: None Reported Past Surgical History: Heart Catheterization With Stent, Orthopedic Surgery Additional Past Surgical History / Comment(s): stentx1 RCA, colostomy and reversal, knee surg, prostate and stomach ca surg Past Anesthesia/Blood Transfusion Reactions: No Reported Reaction Past Psychological History: No Psychological Hx Reported Smoking Status: Current every day smoker, Heavy tobacco smoker Past Alcohol Use History: Rare Past Drug Use History: None Reported - Past Family History Father Additional Family Medical History / Comment(s): of ETOH General Exam Limitations: no limitations General appearance: alert, in no apparent distress Head exam: Present: atraumatic, normocephalic Eye exam: Present: normal appearance. Absent: scleral icterus, conjunctival injection Neck exam: Present: normal inspection Respiratory exam: Present: normal lung sounds bilaterally. Absent: respiratory distress, wheezes, rales, rhonchi, stridor, chest wall tenderness, accessory muscle use Cardiovascular Exam: Present: regular rate, normal rhythm, normal heart sounds. Absent: systolic murmur, diastolic murmur, rubs, gallop GI/Abdominal exam: Present: soft. Absent: distended, tenderness, guarding, rebound, rigid, mass Extremities exam: Present: normal inspection, normal capillary refill. Absent: pedal edema, calf tenderness Back exam: Present: normal inspection Neurological exam: Present: alert Skin exam: Present: warm, dry, intact, normal color. Absent: rash Course Vital Signs 01/28/22 01/28/22 01/29/22 20:46 23:11 01:19 Temperature 98.2 F 98 F Pulse Rate 86 82 80 Respiratory 22 16 16 Rate Blood Pressure 107/64 127/78 123/84 O2 Sat by Pulse 96 99 96 Oximetry 01/29/22 01/29/22 01/29/22 04:50 06:36 11:59 Temperature Pulse Rate 74 70 65 Respiratory 16 16 18 Rate Blood Pressure 140/90 138/82 154/84 O2 Sat by Pulse 97 95 96 Oximetry 01/29/22 14:05 Temperature Pulse Rate 62 Respiratory 18 Rate Blood Pressure 147/81 O2 Sat by Pulse 96 Oximetry EKG Findings - EKG Results: EKG: interpreted by JOSELIN, sinus rhythm (Rate 88 bpm), normal axis, normal QRS, normal ST/T, no acute changes Medical Decision Making - Medical Decision Making Patient is 61-year-old man presenting with chest pain found to have mildly elevated troponin. Case is discussed with cardiology and they're familiar with this patient. Patient admitted for telemetry monitoring, serial cardiac enzymes and further cardiac evaluation. - Lab Data Result diagrams: 01/28/22 22:00 02/01/22 07:17 Lab Results 01/28/22 01/28/22 01/28/22 Range/Units 22:00 22:00 22:00 WBC 8.0 (3.8-10.6) k/uL RBC 4.19 L (4.30-5.90) m/uL Hgb 13.9 (13.0-17.5) gm/dL Hct 37.9 L (39.0-53.0) % MCV 90.5 (80.0-100.0) fL MCH 33.1 (25.0-35.0) pg MCHC 36.6 (31.0-37.0) g/dL RDW 12.9 (11.5-15.5) % Plt Count 232 (150-450) k/uL MPV 8.4 Neutrophils % 47 % Lymphocytes % 44 % Monocytes % 4 % Eosinophils % 2 % Basophils % 1 % Neutrophils # 3.8 (1.3-7.7) k/uL Lymphocytes # 3.5 (1.0-4.8) k/uL Monocytes # 0.3 (0-1.0) k/uL Eosinophils # 0.2 (0-0.7) k/uL Basophils # 0.1 (0-0.2) k/uL PT 10.3 (9.0-12.0) sec INR 1.0 (<1.2) APTT 23.5 (22.0-30.0) sec Sodium 144 (137-145) mmol/L Potassium 3.3 L (3.5-5.1) mmol/L Chloride 111 H (98-107) mmol/L Carbon Dioxide 19 L (22-30) mmol/L Anion Gap 14 mmol/L BUN 16 (9-20) mg/dL Creatinine 1.00 (0.66-1.25) mg/dL Est GFR (CKD-EPI)AfAm >90 (>60 ml/min/1.73 sqM) Est GFR (CKD-EPI)NonAf 82 (>60 ml/min/1.73 sqM) Glucose 113 H (74-99) mg/dL Calcium 8.8 (8.4-10.2) mg/dL Magnesium 1.9 (1.6-2.3) mg/dL Total Bilirubin 0.5 (0.2-1.3) mg/dL AST 29 (17-59) U/L ALT 25 (4-49) U/L Alkaline Phosphatase 70 (38-126) U/L Troponin I (0.000-0.034) ng/mL Total Protein 6.8 (6.3-8.2) g/dL Albumin 4.0 (3.5-5.0) g/dL Urine Color Urine Appearance (Clear) Urine pH (5.0-8.0) Ur Specific [place] (1.001-1.035) Urine Protein (Negative) Urine Glucose (UA) (Negative) Urine Ketones (Negative) Urine Blood (Negative) Urine Nitrite (Negative) Urine Bilirubin (Negative) Urine Urobilinogen (<2.0) mg/dL Ur Leukocyte Esterase (Negative) 01/28/22 01/28/22 Range/Units 22:00 22:00 WBC (3.8-10.6) k/uL RBC (4.30-5.90) m/uL Hgb (13.0-17.5) gm/dL Hct (39.0-53.0) % MCV (80.0-100.0) fL MCH (25.0-35.0) pg MCHC (31.0-37.0) g/dL RDW (11.5-15.5) % Plt Count (150-450) k/uL MPV Neutrophils % % Lymphocytes % % Monocytes % % Eosinophils % % Basophils % % Neutrophils # (1.3-7.7) k/uL Lymphocytes # (1.0-4.8) k/uL Monocytes # (0-1.0) k/uL Eosinophils # (0-0.7) k/uL Basophils # (0-0.2) k/uL PT (9.0-12.0) sec INR (<1.2) APTT (22.0-30.0) sec Sodium (137-145) mmol/L Potassium (3.5-5.1) mmol/L Chloride (98-107) mmol/L Carbon Dioxide (22-30) mmol/L Anion Gap mmol/L BUN (9-20) mg/dL Creatinine (0.66-1.25) mg/dL Est GFR (CKD-EPI)AfAm (>60 ml/min/1.73 sqM) Est GFR (CKD-EPI)NonAf (>60 ml/min/1.73 sqM) Glucose (74-99) mg/dL Calcium (8.4-10.2) mg/dL Magnesium (1.6-2.3) mg/dL Total Bilirubin (0.2-1.3) mg/dL AST (17-59) U/L ALT (4-49) U/L Alkaline Phosphatase (38-126) U/L Troponin I 0.074 H* (0.000-0.034) ng/mL Total Protein (6.3-8.2) g/dL Albumin (3.5-5.0) g/dL Urine Color Yellow Urine Appearance Clear (Clear) Urine pH 5.5 (5.0-8.0) Ur Specific [place] 1.032 (1.001-1.035) Urine Protein Trace H (Negative) Urine Glucose (UA) Negative (Negative) Urine Ketones 1+ H (Negative) Urine Blood Negative (Negative) Urine Nitrite Negative (Negative) Urine Bilirubin Negative (Negative) Urine Urobilinogen 2.0 (<2.0) mg/dL Ur Leukocyte Esterase Negative (Negative) Critical Care Time Critical Care Time: Yes (30 minutes) Disposition Clinical Impression: Chest pain, Acute coronary syndrome with high troponin Disposition: ADMITTED IP TO THIS HOSP Condition: Fair Is patient prescribed a controlled substance at d/c from ED?: No
[2022-01-28 22:14] LABS: Basophils # (A) 0.1 k/uL (0-0.2); Basophils % (A) 1 %; Eosinophils # (A) 0.2 k/uL (0-0.7); Eosinophils % (A) 2 %; HCT 37.9 % (39.0-53.0); HGB 13.9 gm/dL (13.0-17.5); Lymphocytes # (A) 3.5 k/uL (1.0-4.8); Lymphocytes % (A) 44 %; MCH 33.1 pg (25.0-35.0); MCHC 36.6 g/dL (31.0-37.0); MCV 90.5 fL (80.0-100.0); Mean Platelet Volume 8.4; Monocytes # (A) 0.3 k/uL (0-1.0); Monocytes % (A) 4 %; Neutrophils # (A) 3.8 k/uL (1.3-7.7); Neutrophils % (A) 47 %; Platelet Count 232 k/uL (150-450); RBC 4.19 m/uL (4.30-5.90); RDW 12.9 % (11.5-15.5)
[2022-01-28 22:28] LABS: Partial Thromboplastin Time 23.5 sec (22.0-30.0); Prothrombin Time 10.3 sec (9.0-12.0)
[2022-01-28 22:31] LABS: ALT 25 U/L (4-49); AST 29 U/L (17-59); African American GFR (CKD) >90 (>60 ml/min/1.73 sqM); Alkaline Phosphatase 70 U/L (38-126); Anion Gap 14 mmol/L; Blood Urea Nitrogen 16 mg/dL (9-20); Calcium 8.8 mg/dL (8.4-10.2); Carbon Dioxide 19 mmol/L (22-30); Chloride 111 mmol/L (98-107); Glucose 113 mg/dL (74-99); Magnesium 1.9 mg/dL (1.6-2.3); Non-African American GFR(CKD) 82 (>60 ml/min/1.73 sqM); Potassium 3.3 mmol/L (3.5-5.1); Sodium 144 mmol/L (137-145); Total Bilirubin 0.5 mg/dL (0.2-1.3); Total Protein 6.8 g/dL (6.3-8.2)
[2022-01-28 22:32] LABS: Appearance,Urine Clear (Clear); Bilirubin,Urine Negative (Negative); Blood,Urine Negative (Negative); Color,Urine Yellow; Glucose,Urine (UA) Negative (Negative); Ketones,Urine 1+ (Negative); Leukocyte Esterase,Urine Negative (Negative); Nitrite,Urine Negative (Negative); PH, Urine 5.5 (5.0-8.0); Protein,Urine Trace (Negative); Specific Gravity,Urine 1.032 (1.001-1.035)
--- NOTE | 2022-01-28 22:34 | XR ---
EXAMINATION TYPE: XR chest 2V DATE OF EXAM: 01/28/2022 COMPARISON: 06/14/2015 HISTORY: Dysrhythmia TECHNIQUE: FINDINGS: Heart is normal. Lungs are clear. Diaphragm is normal. Bony thorax is normal. IMPRESSION: Normal chest. Inspiration improved compared to old exam.
[2022-01-28] MEDS ORDERED: POTASSIUM CHLORIDE ER 20 MEQ TAB.ER PO STA (23:01)
[2022-01-28] MEDS ORDERED: NITROGLYCERIN SL TABS 0.4 MG TAB SUBLINGUAL PRN (23:10)
[2022-01-28] MEDS ORDERED: HEPARIN SODIUM 1,000 UN/ML (10ML VL) IV ONE (23:10)
[2022-01-28] MEDS: HEPARIN SOD,PORK IN 0.45% NACL 25,000 UNIT in 0.45% NACL 1 250ML.BAG IV SCH (23:34)
[2022-01-29] MEDS ORDERED: MORPHINE SULFATE 4 MG/ML SYRINGE IVP STA ×2 (01:24→04:33)
[2022-01-29] MEDS ORDERED: HEPARIN SODIUM 1,000 UN/ML (10ML VL) IV PRN (08:39)
[2022-01-29] MEDS ORDERED: ASPIRIN 325 MG TAB PO SCH (09:00)
[2022-01-29 09:49] LABS: HDL Cholesterol 44.1 mg/dL (40.00-60.00)
[2022-01-29 10:01] LABS: Chol/HDL Ratio 3.67 Ratio; LDL Cholesterol,Direct Reflex 37.5 mg/dL (0.00-129.00)
[2022-01-29] MEDS ORDERED: ALPRAZolam 0.5 MG TAB PO PRN (11:25)
[2022-01-29] MEDS ORDERED: ATORVASTATIN 80 MG TAB PO STA (11:25)
[2022-01-29] MEDS ORDERED: NITROGLYCERIN SL TABS 0.4 MG TAB SUBLINGUAL PRN (11:25)
[2022-01-29] MEDS ORDERED: ASPIRIN 325 MG TAB PO STA (11:25)
[2022-01-29] MEDS ORDERED: ALPRAZolam 0.25 MG TAB PO PRN (11:25)
--- NOTE | 2022-01-29 11:46 | P.CRDCN ---
History of Present Illness Consult date: 01/29/22 Requesting physician: Sudeep Shane Reason for Consult (text): chest pain, elevated troponin Chief complaint: rapid heart beat History of present illness: This is a 61-year-old gentleman with past medical history of [place] in 2014 at which time he was found to have critical stenosis of the RCA, mild to moderate disease in the circumflex and the left anterior descending artery and subsequently unde rwent PCI of RCA, ischemic retinopathy with ejection fraction of 45-50% noted on echo in 2014, hypertension, hyperlipidemia, nicotine dependence, drinks at least 2 shots on a daily basis, who has not followed with cardiology since 2014 or 2015 and is scheduled next week to be seen by Dr. Maru Gallo as an inpatient. He presented to the emergency department as advised by his pharmacist after he noted his heart rate to be elevated. He felt what he describes is an anxious feeling in his chest and heart rate was in the 150s. At the time of his [place] he felt that a truck was sitting on his chest. He denies these symptoms but says he feels like it could be happening soon. He does complain of dyspnea on exertion but feels this is related to his smoking history and being out of shape. Upon presentation EKG shows sinus mechanism. Troponins are minimally elevated at 0.074, 0.074 and 0.048. Chest x-ray at admission showed normal chest, inspiration improved impaired to old exam. Upon examination patient is resting comfortably in the emergency department. He is maintaining sinus mechanism. Vital signs have been stable. Past Medical History Past Medical History: Coronary Artery Disease (CAD), Chest Pain / Angina, Myocardial Infarction ([place]), Prostate Disorder Additional Past Medical History / Comment(s): prostate CA, colostomy reversal, stomach ca, gout, reactive arthritis Last Myocardial Infarction Date:: 09/29/2014 History of Any Multi-Drug Resistant Organisms: None Reported Past Surgical History: Heart Catheterization With Stent, Orthopedic Surgery Additional Past Surgical History / Comment(s): stentx1 RCA, colostomy and reversal, knee surg, prostate and stomach ca surg Past Anesthesia/Blood Transfusion Reactions: No Reported Reaction Past Psychological History: No Psychological Hx Reported Smoking Status: Current every day smoker, Heavy tobacco smoker Past Alcohol Use History: Rare Past Drug Use History: None Reported - Past Family History Father Additional Family Medical History / Comment(s): of ETOH Medications and Allergies Home Medications Medication Instructions Recorded Confirmed Type Omeprazole [PriLOSEC] 20 mg PO DAILY 09/30/14 01/29/22 History allopurinoL [Zyloprim] 600 mg PO DAILY 09/30/14 01/29/22 History Aspirin EC [Ecotrin Low Dose] 81 mg PO DAILY 08/20/16 01/29/22 History HYDROcodone/APAP 10-325MG [[place] 1 tab PO TID 08/20/16 01/29/22 History 10-325] Metoprolol Succinate (ER) [Toprol 50 mg PO DAILY 08/20/16 01/29/22 History Xl] lisinopriL [Zestril] 2.5 mg PO DAILY 08/20/16 01/29/22 History Levothyroxine Sodium [Synthroid] 200 mcg PO AC-BRKFST 09/12/19 01/29/22 History Rosuvastatin Calcium [Crestor] 2.5 mg PO DAILY 09/12/19 01/29/22 History Albuterol Inhaler [Ventolin Hfa 1 - 2 puff INHALATION RT-QID PRN 01/29/22 01/29/22 History Inhaler] Allergies Allergy/AdvReac Type Severity Reaction Status Date / Time No Known Allergies Allergy Verified 01/29/22 07:06 Physical Exam Vitals: Vital Signs Temp Pulse Resp BP Pulse Ox 01/29/22 06:36 70 16 138/82 95 01/29/22 04:50 74 16 140/90 97 01/29/22 01:19 80 16 123/84 96 01/28/22 23:11 98 F 82 16 127/78 99 01/28/22 20:46 98.2 F 86 22 107/64 96 Intake and Output 01/28/22 01/29/22 01/29/22 22:59 06:59 14:59 Intake Total 90 Balance 90 Intake: Intake, IV Titration 90 Amount Heparin Sod,Pork in 0.45% 90 NaCl 25,000 unit In 0.45 % NaCl 1 250ml.bag @ 8. 0168 UNITS/KG/HR 10 mls/ hr IV .Q24H [facility] Rx#: [id number] Other: Weight 124.738 kg PHYSICAL EXAMINATION: This is a 61-year-old male in no apparent distress at the time of my examination. HEENT: Head is atraumatic, normocephalic. Pupils are equal, round. Sclerae anic teric. Conjunctivae are clear. Mucous membranes of the mouth are moist. Neck is supple. There is no elevated jugular venous pressure. No carotid bruit is heard. CHEST EXAMINATION: Lungs reveal diminished air entry bilaterally. No wheezes rales or rhonchi. Respirations even and nonlabored. HEART EXAMINATION: Heart regular, positive S1 and S2. No S3. No S4. No clicks, rubs or murmurs. ABDOMEN: Soft, nontender. Bowel sounds are heard. No organomegaly noted. EXTREMITIES: 2+ peripheral pulses with no evidence of peripheral edema and no calf tenderness noted. NEUROLOGIC EXAMINATION: Patient is awake, alert and oriented x3. Results 01/28/22 22:00 01/28/22 22:00 Cardiac Enzymes 01/28/22 01/28/22 01/28/22 Range/Units 22:00 22:00 23:30 AST 29 (17-59) U/L Troponin I 0.074 H* 0.074 H* (0.000-0.034) ng/mL 01/29/22 Range/Units 05:35 AST (17-59) U/L Troponin I 0.048 H* (0.000-0.034) ng/mL Coagulation 01/28/22 01/29/22 Range/Units 22:00 05:35 PT 10.3 (9.0-12.0) sec APTT 23.5 25.5 (22.0-30.0) sec Lipids 01/29/22 Range/Units 05:35 Triglycerides 711.00 H (0.00-149.00) mg/dL Cholesterol 162.00 (0.00-200.00) mg/dL HDL Cholesterol 44.10 (40.00-60.00) mg/dL Cholesterol/HDL Ratio 3.67 Ratio CBC 01/28/22 Range/Units 22:00 WBC 8.0 (3.8-10.6) k/uL RBC 4.19 L (4.30-5.90) m/uL Hgb 13.9 (13.0-17.5) gm/dL Hct 37.9 L (39.0-53.0) % Plt Count 232 (150-450) k/uL Comprehensive Metabolic Panel 01/28/22 Range/Units 22:00 Sodium 144 (137-145) mmol/L Potassium 3.3 L (3.5-5.1) mmol/L Chloride 111 H (98-107) mmol/L Carbon Dioxide 19 L (22-30) mmol/L BUN 16 (9-20) mg/dL Creatinine 1.00 (0.66-1.25) mg/dL Glucose 113 H (74-99) mg/dL Calcium 8.8 (8.4-10.2) mg/dL AST 29 (17-59) U/L ALT 25 (4-49) U/L Alkaline Phosphatase 70 (38-126) U/L Total Protein 6.8 (6.3-8.2) g/dL Albumin 4.0 (3.5-5.0) g/dL Current Medications Generic Name Dose Route Start Last Admin Trade Name Freq PRN Reason Stop Dose Admin Alprazolam 0.25 mg 01/29/22 11:25 Alprazolam 0.25 Mg Tab PO Q6HR PRN Mild Anxiety Alprazolam 0.5 mg 01/29/22 11:25 Alprazolam 0.5 Mg Tab PO Q6HR PRN Moderate Anxiety Aspirin 325 mg 01/29/22 09:00 01/29/22 08:47 Aspirin 325 Mg Tab PO 325 mg DAILY [facility] Administration Atorvastatin Calcium 5 mg 01/30/22 09:00 Atorvastatin 10 Mg Tab PO DAILY [facility] Heparin Sodium (Porcine) 0 unit 01/29/22 08:39 01/29/22 08:45 Heparin Sodium 1,000 Un/Ml (10ml Vl) IV 6,235 unit Q6HR PRN Administration Low PTT Protocol Heparin Sodium/Sodium Chloride 250 mls @ 10 mls/hr 01/28/22 23:15 01/29/22 08:34 25,000 unit/ Sodium Chloride IV 11 units/kg/hr .Q24H [facility] 13.721 mls/hr Titration Protocol 8.0168 UNITS/KG/HR Heparin Sodium (Porcine) 10, 1,001 mls @ 999 mls/hr 01/30/22 07:00 000 unit/ Sodium Chloride IRRIGATION 01/30/22 23:00 ONCE PRN INTRA-OP Heparin Sodium (Porcine) 2,500 250.5 mls @ 250 mls/hr 01/30/22 07:00 unit/ Sodium Chloride IRRIGATION 01/30/22 23:00 ONCE PRN INTRA-OP Lisinopril 2.5 mg 01/30/22 09:00 Lisinopril 2.5 Mg Tab PO DAILY [facility] Metoprolol Succinate 50 mg 01/30/22 09:00 Metoprolol Succinate (Er) 50 Mg Tab.Er.24h PO DAILY [facility] Nitroglycerin 0.4 mg 01/28/22 23:10 Nitroglycerin Sl Tabs 0.4 Mg Tab SUBLINGUAL Q5M PRN Chest Pain Intake and Output 01/28/22 01/29/22 01/29/22 22:59 06:59 14:59 Intake Total 90 Balance 90 Intake: Intake, IV Titration 90 Amount Heparin Sod,Pork in 0.45% 90 NaCl 25,000 unit In 0.45 % NaCl 1 250ml.bag @ 8. 0168 UNITS/KG/HR 10 mls/ hr IV .Q24H [facility] Rx#: [id number] Other: Weight 124.738 kg 01/28/22 22:00 01/28/22 22:00 Assessment and Plan Assessment: #1 symptoms concerning for angina with mild troponin elevation #2 CAD with prior [place] in 2014 and PCI to RCA at that time with known disease involving the circumflex and LAD #3 ischemic cardiomyopathy #4 hypertension #5 hyperlipidemia Nicotine dependence #7 alcohol abuse Plan: From cardiology's perspective we'll tentatively echo with Doppler study to assess cardiac structure and function. Will increase statin. Recommend patient undergo cardiac catheterization. The risks, benefits and alternative therapies for the above-mentioned procedure and for both sedation/analgesia as well as necessary blood product administration, if indicated, have been discussed with the patient. The patient has indicated understanding and acceptance of the risks and procedures discussed. Questions have been answered appropriately and he is agreeable to move forward with the above stated procedure. Discussed importance of smoking and alcohol cessation with the patient. Further recommendations to follow depending on clinical course and diagnostic findings. [employer] note has been reviewed, I agree with a documented findings and plan of care. Patient was seen and examined.
[2022-01-29] MEDS ORDERED: ALBUTEROL NEBULIZED 2.5 MG/3 ML INHALATION PRN (12:41)
--- NOTE | 2022-01-29 12:48 | P.HPIM ---
History of Present Illness 61-year-old male known history of carotid disease his heart failure ischemic cardiomyopathy, came in with the complaints of pressure-like chest pain nonexertional, on and off nonradiating. Patient had previous history of coronary artery disease with critical stenosis to RCA and mild to moderate disease in the circumflex and left anterior descending underwent the [employer] and stents to RCA patient had a EF of around 40-45%, patient does have some exertional shortness of breath patient is found to have mild troponin elevation of 0.074 with the latest one being 0.048 chest x-ray did not show any significant abnormality EKG did not show any acute ST-T wave changes was a valid by cardiology that recommending cardiac catheterization patient will undergo cardiac catheterization today. REVIEW OF SYSTEMS: CONSTITUTIONAL: No fever, no malaise, no fatigue. HEENT: No recent visual problems or hearing problems. Denied any sore throat. CARDIOVASCULAR: No orthopnea, PND, no palpitations, no syncope. PULMONARY: no cough, no hemoptysis. GASTROINTESTINAL: No diarrhea, no nausea, no vomiting, no abdominal pain. NEUROLOGICAL: No headaches, no weakness, no numbness. HEMATOLOGICAL: Denies any bleeding or petechiae. GENITOURINARY: Denies any burning micturition, frequency, or urgency. MUSCULOSKELETAL/RHEUMATOLOGICAL: Denies any joint pain, swelling, or any muscle pain. ENDOCRINE: Denies any polyuria or polydipsia. The rest of the 14-point review of systems is negative. PHYSICAL EXAMINATION: GENERAL: The patient is alert and oriented x3, not in any acute distress. Obese HEENT: Pupils are round and equally reacting to light. EOMI. No scleral icterus. No conjunctival pallor. Normocephalic, atraumatic. No pharyngeal erythema. No thyromegaly. CARDIOVASCULAR: S1 and S2 present. No murmurs, rubs, or gallops. PULMONARY: Chest is clear to auscultation, no wheezing or crackles. ABDOMEN: Soft, nontender, nondistended, normoactive bowel sounds. No palpable organomegaly. MUSCULOSKELETAL: No joint swelling or deformity. EXTREMITIES: No cyanosis, clubbing, or pedal edema. NEUROLOGICAL: Gross neurological examination did not reveal any focal deficits. SKIN: No rashes. Assessment and plan -possible non-ST elevation myocardial infarction: Patient was evaluated by cardiology patient isn't IV heparin at this time patient will undergo cardiac catheterization -Ischemic cardiomyopathy congestive heart failure with EF of around 40-545% chronic without any acute exacerbation at this time -Hypertension -Hyperlipidemia -Alcohol abuse patient drinks alcohol on a daily basis patient will be monitored for withdrawals will treat that if he has withdrawals -Continue nicotine use: Excessive counseling was provided regarding this -Hypokalemia potassium will be replaced Benign prostatic hypertrophy DVT prophylaxis: On IV heparin Past Medical History Past Medical History: Coronary Artery Disease (CAD), Chest Pain / Angina, Myocardial Infarction ([place]), Prostate Disorder Additional Past Medical History / Comment(s): prostate CA, colostomy reversal, stomach ca, gout, reactive arthritis Last Myocardial Infarction Date:: 09/29/2014 History of Any Multi-Drug Resistant Organisms: None Reported Past Surgical History: Heart Catheterization With Stent, Orthopedic Surgery Additional Past Surgical History / Comment(s): stentx1 RCA, colostomy and revers al, knee surg, prostate and stomach ca surg Past Anesthesia/Blood Transfusion Reactions: No Reported Reaction Past Psychological History: No Psychological Hx Reported Smoking Status: Current every day smoker, Heavy tobacco smoker Past Alcohol Use History: Rare Past Drug Use History: None Reported - Past Family History Father Additional Family Medical History / Comment(s): of ETOH Medications and Allergies Home Medications Medication Instructions Recorded Confirmed Type Omeprazole [PriLOSEC] 20 mg PO DAILY 09/30/14 01/29/22 History allopurinoL [Zyloprim] 600 mg PO DAILY 09/30/14 01/29/22 History Aspirin EC [Ecotrin Low Dose] 81 mg PO DAILY 08/20/16 01/29/22 History HYDROcodone/APAP 10-325MG [[place] 1 tab PO TID 08/20/16 01/29/22 History 10-325] Metoprolol Succinate (ER) [Toprol 50 mg PO DAILY 08/20/16 01/29/22 History Xl] lisinopriL [Zestril] 2.5 mg PO DAILY 08/20/16 01/29/22 History Levothyroxine Sodium [Synthroid] 200 mcg PO AC-BRKFST 09/12/19 01/29/22 History Rosuvastatin Calcium [Crestor] 2.5 mg PO DAILY 09/12/19 01/29/22 History Albuterol Inhaler [Ventolin Hfa 1 - 2 puff INHALATION RT-QID PRN 01/29/22 01/29/22 History Inhaler] Allergies Allergy/AdvReac Type Severity Reaction Status Date / Time No Known Allergies Allergy Verified 01/29/22 07:06 Physical Exam Vitals: Vital Signs Temp Pulse Resp BP Pulse Ox 01/29/22 11:59 65 18 154/84 96 01/29/22 06:36 70 16 138/82 95 01/29/22 04:50 74 16 140/90 97 01/29/22 01:19 80 16 123/84 96 01/28/22 23:11 98 F 82 16 127/78 99 01/28/22 20:46 98.2 F 86 22 107/64 96 Intake and Output 01/28/22 01/29/22 01/29/22 22:59 06:59 14:59 Intake Total 90 Balance 90 Intake: Intake, IV Titration 90 Amount Heparin Sod,Pork in 0.45% 90 NaCl 25,000 unit In 0.45 % NaCl 1 250ml.bag @ 8. 0168 UNITS/KG/HR 10 mls/ hr IV .Q24H [facility] Rx#: [id number] Other: Weight 124.738 kg Results CBC & Chem 7: 01/28/22 22:00 01/28/22 22:00 Labs: Abnormal Lab Results - Last 24 Hours (Table) 01/28/22 01/28/22 01/28/22 Range/Units 22:00 22:00 22:00 RBC 4.19 L (4.30-5.90) m/uL Hct 37.9 L (39.0-53.0) % Potassium 3.3 L (3.5-5.1) mmol/L Chloride 111 H (98-107) mmol/L Carbon Dioxide 19 L (22-30) mmol/L Glucose 113 H (74-99) mg/dL Troponin I 0.074 H* (0.000-0.034) ng/mL Triglycerides (0.00-149.00) mg/dL Urine Protein (Negative) Urine Ketones (Negative) 01/28/22 01/28/22 01/29/22 Range/Units 22:00 23:30 05:35 RBC (4.30-5.90) m/uL Hct (39.0-53.0) % Potassium (3.5-5.1) mmol/L Chloride (98-107) mmol/L Carbon Dioxide (22-30) mmol/L Glucose (74-99) mg/dL Troponin I 0.074 H* 0.048 H* (0.000-0.034) ng/mL Triglycerides (0.00-149.00) mg/dL Urine Protein Trace H (Negative) Urine Ketones 1+ H (Negative) 01/29/22 Range/Units 05:35 RBC (4.30-5.90) m/uL Hct (39.0-53.0) % Potassium (3.5-5.1) mmol/L Chloride (98-107) mmol/L Carbon Dioxide (22-30) mmol/L Glucose (74-99) mg/dL Troponin I (0.000-0.034) ng/mL Triglycerides 711.00 H (0.00-149.00) mg/dL Urine Protein (Negative) Urine Ketones (Negative)
[2022-01-29] MEDS ORDERED: fentaNYL (PF) 50 MCG/ML 2 ML AMP ONE (14:16)
[2022-01-29] MEDS ORDERED: fentaNYL (PF) 50 MCG/ML 2 ML AMP IVP ONE (14:40)
[2022-01-29] MEDS ORDERED: MIDAZOLAM 2 MG/2 ML VIAL IVP ONE (14:43)
[2022-01-29] MEDS ORDERED: LIDOCAINE 1% INJ 10MG/ML (30 ML VIAL-PF) SQ ONE (14:44)
[2022-01-29] MEDS ORDERED: SODIUM CHLORIDE 0.9% 1,000 ML IV ONE (14:47)
[2022-01-29] MEDS ORDERED: IOPAMIDOL-370 125ML BTL INJ ONE (15:01)
[2022-01-29] MEDS ORDERED: RX INFO: IV CONTRAST WAS GIVEN 1 EACH MISC MISCELLANE PRN (15:11)
[2022-01-29] MEDS ORDERED: SODIUM CHLORIDE 0.9% 1,000 ML IV SCH (15:15)
--- NOTE | 2022-01-29 15:22 | P.CARDCATH ---
Date of Procedure: 01/29/22 Description of Procedure: Cardiac Catheterization: the patient is a 61-year-old male with a known history of CAD, post stenting of the RCA in 2015, chronic tobacco and alcohol intake who presented with palpitations and vague chest discomfort.he had mild troponin elevation. Recommendations were made regarding cardiac catheterization, the risks and the complications were discussed with the patient who is in full understanding and agreement. Procedure Description: Patient was brought to laboratory coordinator in fasting semi-sedated state after receiving Fentanyl and Benadryl achieiving moderate conscious sedated state. Using Xylocaine Anesthesia and Seldinger technique, a 6-Portuguese sheath was introduced in the right femoral artery . Subsequently, selective coronary angiography was performed using a 6-Portuguese 4 bend Cecy catheter. Multiple views of the coronary artery including hemiaxial views were obtained. The 6 romanian pigtail catheter was used to cross the aortic valve and LVEDP was calculated. Following that, catheter and sheath were removed. Hemostasis was obtained with deployment of angioseal . There was no immediate complication. Patient was returned to room in stable condition. Findings: fluoroscopy: Calcifications of the coronary arteries was noted Left main: this is a large-size vessel, bifurcating into LAD and left circumflex, the distal left main has 10-20% plaque LAD: this is a large size vessel reaching to the apex giving rise to a small diagonal branch, the LAD has no evidence of high-grade stenosis Left circumflex: this is a large nondominant vessel, giving rise to a very proximal obtuse marginal branch of the second obtuse marginal branch is large in caliber. The ostial left circumflex has a 50% plaque, the first obtuse marginal branch has a 60% disease ., the rest of the vessel has no high-grade stenosis RCA: this is a large dominant vessel, chronically occluded proximally with minimal antegrade flow. The patient has good collaterals from the left system toward the right PDA and PLV. Left Ventriculogram: not performed Hemodynamics: there was no gradient across the aortic valve , LVEDP was 14-16 mmHg Conclusion: 1. chronically occluded proximal RCA at the site of the prior stent performed in 2014 with collaterals from the left system 2. mild disease in the distal left main 3. moderate disease in the ostial left circumflex with moderate to significant disease in the first OM 4. no evidence of significant obstructive disease in the LAD Recommendations: I have recommended to maximize his medical therapy with aggressive coronary risks modifications. If he persists in having symptoms evaluated for the option of PCI of the [employer] NETWORK ADMINISTRATOR of the RCA and possible OM1. The findings and the recommendations were discussed with the patient and he was in full understanding and agreement. Duration of sedation is 17 minutes.
[2022-01-29] MEDS: HYDROcodone/APAP 10-325MG 1 EACH TAB PO SCH ×2 (15:57→20:58)
[2022-01-29] MEDS: ISOSORBIDE MONONITRATE ER 30 MG TAB.ER.24H PO SCH (15:57)
[2022-01-30] MEDS: HEPARIN SOD,PORK IN 0.45% NACL 25,000 UNIT in 0.45% NACL 1 250ML.BAG IV SCH ×2 (02:30→23:17)
[2022-01-30] MEDS: LEVOTHYROXINE 100 MCG TAB PO SCH (06:20)
[2022-01-30] MEDS ORDERED: HEPARIN SODIUM,PORCINE 2,500 UNIT in SODIUM CHLORIDE 0.9% 250 ML IRRIGATION PRN (07:00)
[2022-01-30] MEDS ORDERED: HEPARIN SODIUM,PORCINE 10,000 UNIT in SODIUM CHLORIDE 0.9% 1,000 ML IRRIGATION PRN (07:00)
[2022-01-30] MEDS: HYDROcodone/APAP 10-325MG 1 EACH TAB PO SCH ×3 (08:23→20:54)
[2022-01-30] MEDS: ASPIRIN 81 MG PO SCH (08:23)
[2022-01-30] MEDS: ISOSORBIDE MONONITRATE ER 30 MG TAB.ER.24H PO SCH (08:23)
[2022-01-30] MEDS: ATORVASTATIN 40 MG TAB PO SCH (08:24)
[2022-01-30] MEDS: METOPROLOL SUCCINATE (ER) 50 MG TAB.ER.24H PO SCH (08:24)
[2022-01-30] MEDS ORDERED: ATORVASTATIN 10 MG TAB PO SCH (09:00)
[2022-01-30 10:14] LABS: African American GFR (CKD) >90 (>60 ml/min/1.73 sqM); Anion Gap 6 mmol/L; Blood Urea Nitrogen 7 mg/dL (9-20); Calcium 8.6 mg/dL (8.4-10.2); Carbon Dioxide 23 mmol/L (22-30); Chloride 109 mmol/L (98-107); Glucose 112 mg/dL (74-99); Non-African American GFR(CKD) >90 (>60 ml/min/1.73 sqM); Potassium 4.1 mmol/L (3.5-5.1); Sodium 138 mmol/L (137-145)
--- NOTE | 2022-01-30 12:22 | P.PN ---
Subjective Progress Note Date: 01/30/22 PROGRESS NOTE The patient is a 61-year-old male with a known history of CAD status post stenting of the RCA in 2015 who has not been followed in a while who presented was heart rate variation and chest discomfort. He had minimal troponin elevation and underwent cardiac catheterization, was found to have chronically occluded RCA with mild disease in the ostium of the left circumflex and moderate disease in the OM 1. He is feeling better today, he has no chest discomfort but he has chronic dyspnea on exertion. He is in sinus mechanism. He denies any dizziness or palpitations. He denies any nausea. He has not been ambulating. Medications: Aspirin, Lipitor 40 mg daily, isosorbide 30 mg daily, Synthroid, Zestril 2.5 milligrams daily, Toprol-XL 50 mg daily PHYSICAL EXAMINATION: Blood pressure 134/87 heart rate 60 LUNGS: Clear to auscultation HEART: Regular rate and rhythm, S1, S2. No S3. systolic ejection murmur ABDOMEN: Soft, nontender, no organomegaly EXTREMETIES: No edema, right groin no hematoma LAB: BUN 7, creatinine 0.66. IMPRESSION: 1. Coronary disease with chronically occluded RCA with collaterals from the left system 2. History of chronic tobacco use 3. History of chronic alcohol intake 4. Arrhythmia, in sinus since admission 5. Elevated triglyceride could be related to the alcohol intake 6. Hyperlipidemia PLAN: 1. Obtain an echocardiogram with Doppler 2. Increase physical activity 3. Continue present therapy 4. If no further symptoms continue on conservative treatment, if he has recurrent symptoms consider PCI of the MANGANESE WHEELER of the RCA 5. Alcohol and tobacco cessation Objective - Vital Signs Vital signs: Vital Signs Temp 97.8 F 01/30/22 08:20 Pulse 63 01/30/22 08:20 Resp 18 01/30/22 08:20 BP 134/87 01/30/22 08:20 Pulse Ox 97 01/30/22 08:20 FiO2 Intake & Output 01/29/22 01/30/22 01/30/22 18:59 06:59 18:59 Intake Total 390 200 118 Output Total 200 Balance 390 0 118 Weight 124.738 kg Intake: IV 300 Intake, IV Titration 90 Amount Heparin Sod,Pork in 0.45% 90 NaCl 25,000 unit In 0.45 % NaCl 1 250ml.bag @ 8. 0168 UNITS/KG/HR 10 mls/ hr IV .Q24H [facility] Rx#: [id number] Oral 200 118 Output: Urine 200 Other: Voiding Method Toilet Toilet Urinal Urinal - Labs CBC & Chem 7: 01/28/22 22:00 01/30/22 09:09 Labs: Abnormal Lab Results - Last 24 Hours (Table) 01/30/22 Range/Units 09:09 Chloride 109 H (98-107) mmol/L BUN 7 L (9-20) mg/dL Glucose 112 H (74-99) mg/dL
--- NOTE | 2022-01-30 12:39 | P.PN ---
Subjective 61-year-old male known history of carotid disease his heart failure ischemic cardiomyopathy, came in with the complaints of pressure-like chest pain nonexertional, on and off nonradiating. Patient had previous history of coronary artery disease with critical stenosis to RCA and mild to moderate disease in the circumflex and left anterior descending underwent the NEONATAL SOCIAL WORKER and stents to RCA patient had a EF of around 40-45%, patient does have some ex ertional shortness of breath patient is found to have mild troponin elevation of 0.074 with the latest one being 0.048 chest x-ray did not show any significant abnormality EKG did not show any acute ST-T wave changes was a valid by cardiology that recommending cardiac catheterization patient will undergo cardiac catheterization today. 01/30/2022 Patient is clinically doing well patient heart rate is well controlled at this time patient underwent cardiac catheterization which showed chronically occluded the RCA with some partial occlusions in the circumflex and LAD. Patient had collaterals to this RCA occlusion. Cardiology recommended monitoring for 1 more night because of non-ST elevation myocardial infarction on the IV heparin and we're awaiting echocardiogram. Constitutional: Denied any fatigue denied any fever. Cardio vascular: denied any chest pain, palpitations Gastrointestinal denied any nausea vomiting Pulmonary: Denied any shortness of breath cough Neurologic denied any new focal deficits All inpatient medications were reviewed and appropriate changes in these medications as dictated in the interval history and assessment and plan. PHYSICAL EXAMINATION: GENERAL: The patient is alert and oriented x3, not in any acute distress. Obese HEENT: Pupils are round and equally reacting to light. EOMI. No scleral icterus. No conjunctival pallor. Normocephalic, atraumatic. No pharyngeal erythema. No thyromegaly. CARDIOVASCULAR: S1 and S2 present. No murmurs, rubs, or gallops. PULMONARY: Chest is clear to auscultation, no wheezing or crackles. ABDOMEN: Soft, nontender, nondistended, normoactive bowel sounds. No palpable organomegaly. MUSCULOSKELETAL: No joint swelling or deformity. EXTREMITIES: No cyanosis, clubbing, or pedal edema. NEUROLOGICAL: Gross neurological examination did not reveal any focal deficits. SKIN: No rashes. Assessment and plan -possible non-ST elevation myocardial infarction: Patient was evaluated by cardiology patient isn't IV heparin at this time patient will undergo cardiac catheterization -Ischemic cardiomyopathy congestive heart failure with EF of around 40-545% chronic without any acute exacerbation at this time -Hypertension -Hyperlipidemia -Alcohol abuse patient drinks alcohol on a daily basis patient will be monitored for withdrawals will treat that if he has withdrawals -Continue nicotine use: Excessive counseling was provided regarding this -Hypokalemia potassium will be replaced Benign prostatic hypertrophy DVT prophylaxis: On IV heparin Objective - Vital Signs Vital signs: Vital Signs Temp 97.8 F 01/30/22 08:20 Pulse 74 01/30/22 12:22 Resp 18 01/30/22 12:22 BP 120/61 01/30/22 12:22 Pulse Ox 96 01/30/22 12:22 FiO2 Intake & Output 01/29/22 01/30/22 01/30/22 18:59 06:59 18:59 Intake Total 390 200 118 Output Total 200 Balance 390 0 118 Weight 124.738 kg Intake: IV 300 Intake, IV Titration 90 Amount Heparin Sod,Pork in 0.45% 90 NaCl 25,000 unit In 0.45 % NaCl 1 250ml.bag @ 8. 0168 UNITS/KG/HR 10 mls/ hr IV .Q24H [facility] Rx#: [id number] Oral 200 118 Output: Urine 200 Other: Voiding Method Toilet Toilet Urinal Urinal - Labs CBC & Chem 7: 01/28/22 22:00 01/30/22 09:09 Labs: Abnormal Lab Results - Last 24 Hours (Table) 01/30/22 Range/Units 09:09 Chloride 109 H (98-107) mmol/L BUN 7 L (9-20) mg/dL Glucose 112 H (74-99) mg/dL
--- NOTE | 2022-01-30 18:25 | CA ---
Transthoracic Echo Report Name: Keven Elliott Age: 61 Gender: M : 1960 Exam Date: 01/30/2022 10:22 Exam Location: [place] [facility] Ht (in): 64 Wt (lb): 275 Ordering Physician: Lauren Howell Attending/Referring Phys: [id number], Lynda Balance Wheel Screw Hole Driller Jayda Vasquez, RDMADDIE Procedure CPT: Indications: palpitations, elevated troponin Cardiac Hx: Technical Quality: Contrast 1: Total Dose (mL): Contrast 2: Total Dose (mL): MEASUREMENTS (Male / Female) Normal Values 2D ECHO LV Diastolic Diameter PLAX 5.0 cm 4.2 - 5.9 / 3.9 - 5.3 cm LV Systolic Diameter PLAX 4.0 cm IVS Diastolic Thickness 1.3 cm 0.6 - 1.0 / 0.6 - 0.9 cm LVPW Diastolic Thickness 1.3 cm 0.6 - 1.0 / 0.6 - 0.9 cm LV Relative Wall Thickness 0.5 RV Internal Dim ED PLAX 2.3 cm LA Volume 77.2 cm??? 18 - 58 / 22 - 52 cm??? M-MODE Aortic Root Diameter MM 3.1 cm LA Systolic Diameter MM 3.5 cm LA Ao Ratio MM 1.1 MV E Point Septal Separation 0.6 cm AV Cusp Separation MM 2.8 cm DOPPLER MV Area PHT 3.7 cm??? Mitral E Point Velocity 66.2 cm/s Mitral A Point Velocity 62.7 cm/s Mitral E to A Ratio 1.1 MV Deceleration Time 205.2 ms MV E' Velocity 8.2 cm/s Mitral E to MV E' Ratio 8.1 FINDINGS Left Ventricle Mildly increased septal wall thickness. Left ventricular cavity size normal. Left ventricular ejection fraction is estimated at 50 -55 %. Inferobasal hypokinesis Right Ventricle Normal right ventricular size and function. Right ventricular systolic pressure within normal limits. Right Atrium Normal right atrial size. Left Atrium Moderately increased left atrial volume. Mitral Valve Structurally normal mitral valve. Mild mitral regurgitation. Aortic Valve Trileaflet aortic valve. Tricuspid Valve Structurally normal tricuspid valve. Mild tricuspid regurgitation. Pulmonic Valve Structurally normal pulmonic valve. Pericardium Normal pericardium. Aorta Normal size aortic root and proximal ascending aorta. CONCLUSIONS 1. Normal sized with left ventricle systolic function borderline normal with inferobasal hypokinesis 2. Mild mitral and tricuspid regurgitation Previewed by: Dr. Ailin Katz MD (Electronically Signed) Final Date: 30 January 2022 18:23
[2022-01-31] MEDS: LEVOTHYROXINE 100 MCG TAB PO SCH (06:17)
[2022-01-31] MEDS: ASPIRIN 81 MG PO SCH (09:20)
[2022-01-31] MEDS: ATORVASTATIN 40 MG TAB PO SCH (09:20)
[2022-01-31] MEDS: ISOSORBIDE MONONITRATE ER 30 MG TAB.ER.24H PO SCH (09:20)
[2022-01-31] MEDS: METOPROLOL SUCCINATE (ER) 50 MG TAB.ER.24H PO SCH (09:20)
[2022-01-31] MEDS: HYDROcodone/APAP 10-325MG 1 EACH TAB PO SCH ×3 (09:21→21:34)
[2022-01-31 10:24] LABS: African American GFR (CKD) >90 (>60 ml/min/1.73 sqM); Anion Gap 7 mmol/L; Blood Urea Nitrogen 7 mg/dL (9-20); Calcium 8.9 mg/dL (8.4-10.2); Carbon Dioxide 23 mmol/L (22-30); Chloride 108 mmol/L (98-107); Glucose 125 mg/dL (74-99); Non-African American GFR(CKD) >90 (>60 ml/min/1.73 sqM); Potassium 4.2 mmol/L (3.5-5.1); Sodium 138 mmol/L (137-145)
--- NOTE | 2022-01-31 13:37 | P.PN ---
Subjective 61-year-old male known history of carotid disease his heart failure ischemic cardiomyopathy, came in with the complaints of pressure-like chest pain nonexertional, on and off nonradiating. Patient had previous history of coronary artery disease with critical stenosis to RCA and mild to moderate disease in the circumflex and left anterior descending underwent the AGILE DEVELOPER and stents to RCA patient had a EF of around 40-45%, patient does have some ex ertional shortness of breath patient is found to have mild troponin elevation of 0.074 with the latest one being 0.048 chest x-ray did not show any significant abnormality EKG did not show any acute ST-T wave changes was a valid by cardiology that recommending cardiac catheterization patient will undergo cardiac catheterization today. 01/30/2022 Patient is clinically doing well patient heart rate is well controlled at this time patient underwent cardiac catheterization which showed chronically occluded the RCA with some partial occlusions in the circumflex and LAD. Patient had collaterals to this RCA occlusion. Cardiology recommended monitoring for 1 more night because of non-ST elevation myocardial infarction on the IV heparin and we're awaiting echocardiogram. 01/31/2022 Patient is clinically doing well but cut etiology is recommending monitoring 1 more day due to changes in his medications lisinopril and a beta adan. Constitutional: Denied any fatigue denied any fever. Cardio vascular: denied any chest pain, palpitations Gastrointestinal denied any nausea vomiting Pulmonary: Denied any shortness of breath cough Neurologic denied any new focal deficits All inpatient medications were reviewed and appropriate changes in these medications as dictated in the interval history and assessment and plan. PHYSICAL EXAMINATION: GENERAL: The patient is alert and oriented x3, not in any acute distress. Obese HEENT: Pupils are round and equally reacting to light. EOMI. No scleral icterus. No conjunctival pallor. Normocephalic, atraumatic. No pharyngeal erythema. No thyromegaly. CARDIOVASCULAR: S1 and S2 present. No murmurs, rubs, or gallops. PULMONARY: Chest is clear to auscultation, no wheezing or crackles. ABDOMEN: Soft, nontender, nondistended, normoactive bowel sounds. No palpable organomegaly. MUSCULOSKELETAL: No joint swelling or deformity. EXTREMITIES: No cyanosis, clubbing, or pedal edema. NEUROLOGICAL: Gross neurological examination did not reveal any focal deficits. SKIN: No rashes. Assessment and plan -possible non-ST elevation myocardial infarction: Patient was evaluated by cardiology patient had a cardiac catheterization which showed chronic occlusion of RCA with collaterals -Ischemic cardiomyopathy congestive heart failure with EF of around 40-545% chronic without any acute exacerbation at this time -Hypertension -Hyperlipidemia -Alcohol abuse patient drinks alcohol on a daily basis patient will be monitored for withdrawals will treat that if he has withdrawals -Continue nicotine use: Excessive counseling was provided regarding this -Hypokalemia potassium will be replaced Benign prostatic hypertrophy DVT prophylaxis: On IV heparin Objective - Vital Signs Vital signs: Vital Signs Temp 97.8 F 01/31/22 09:18 Pulse 68 01/31/22 12:23 Resp 18 01/31/22 12:23 BP 136/69 01/31/22 12:23 Pulse Ox 94 L 01/31/22 12:23 FiO2 Intake & Output 01/30/22 01/31/22 01/31/22 18:59 06:59 18:59 Intake Total 118 Output Total 300 Balance 118 -300 Intake: Oral 118 Output: Urine 300 Other: Voiding Method Toilet Toilet Toilet Urinal Urinal Urinal # Voids 3 - Labs CBC & Chem 7: 01/28/22 22:00 01/31/22 09:37 Labs: Abnormal Lab Results - Last 24 Hours (Table) 01/31/22 Range/Units 09:37 Chloride 108 H (98-107) mmol/L BUN 7 L (9-20) mg/dL Glucose 125 H (74-99) mg/dL
--- NOTE | 2022-01-31 16:01 | P.PN ---
Subjective Progress Note Date: 01/31/22 PROGRESS NOTE The patient is a 61-year-old male with a known history of CAD status post stenting of the RCA in 2014 who has not been followed in a while who presented was heart rate variation and chest discomfort. He had minimal troponin elevation and underwent cardiac catheterization, was found to have chronically occluded RCA with mild disease in the ostium of the left circumflex and moderate disease in the OM 1. He is feeling better today, he has no chest discomfort but he has chronic dyspnea on exertion. He is in sinus mechanism. He denies any dizziness or palpitations. He denies any nausea. He has not been ambulating. January 31: He is feeling better overall but continues to have some palpitations although on the monitor he is in sinus mechanism. He denies any chest discomfort. He is ambulating without significant symptoms. He denies any dizziness or syncope. His echocardiogram showed an ejection fraction of 50-55% with mild mitral and tricuspid regurgitation. Medications: Aspirin, Lipitor 40 mg daily, isosorbide 30 mg daily, Synthroid, Zestril 2.5 milligrams daily, Toprol-XL 50 mg daily PHYSICAL EXAMINATION: Blood pressure 136/69 heart rate 68 LUNGS: Clear to auscultation HEART: Regular rate and rhythm, S1, S2. No S3. systolic ejection murmur ABDOMEN: Soft, nontender, no organomegaly EXTREMETIES: No edema, right groin no hematoma LAB: BUN 7, creatinine 0.69 IMPRESSION: 1. Coronary disease with chronically occluded RCA with collaterals from the left system 2. History of chronic tobacco use 3. History of chronic alcohol intake 4. Arrhythmia, in sinus since admission 5. Elevated triglyceride could be related to the alcohol intake 6. Hyperlipidemia PLAN: 1. Continue present therapy 2. Continue telemetry 3. Increase physical activity 4. If no further symptoms probable discharge in the morning and follow-up as outpatient to see if there is any need to undergo PCI of the GRIEVANCE MANAGER of the RCA. 5. Alcohol and tobacco cessation Objective - Vital Signs Vital signs: Vital Signs Temp 97.8 F 01/31/22 09:18 Pulse 68 01/31/22 12:23 Resp 18 01/31/22 12:23 BP 136/69 01/31/22 12:23 Pulse Ox 94 L 01/31/22 12:23 FiO2 Intake & Output 01/30/22 01/31/22 01/31/22 18:59 06:59 18:59 Intake Total 118 Output Total 300 Balance 118 -300 Intake: Oral 118 Output: Urine 300 Other: Voiding Method Toilet Toilet Toilet Urinal Urinal Urinal # Voids 3 - Labs CBC & Chem 7: 01/28/22 22:00 01/31/22 09:37 Labs: Abnormal Lab Results - Last 24 Hours (Table) 01/31/22 Range/Units 09:37 Chloride 108 H (98-107) mmol/L BUN 7 L (9-20) mg/dL Glucose 125 H (74-99) mg/dL
[2022-01-31] MEDS: PANTOPRAZOLE 40 MG TABLET PO SCH (16:59)
[2022-01-31] MEDS: KETOROLAC 15 MG/ML 1 ML VIAL IVP PRN ×2 (17:39→23:57)
[2022-01-31] MEDS ORDERED: KETOROLAC 15 MG/ML 1 ML VIAL IVP SCH (18:00)
[2022-02-01] MEDS: LEVOTHYROXINE 100 MCG TAB PO SCH (06:12)
[2022-02-01] MEDS: PANTOPRAZOLE 40 MG TABLET PO SCH (06:12)
[2022-02-01 08:00] LABS: African American GFR (CKD) >90 (>60 ml/min/1.73 sqM); Anion Gap 7 mmol/L; Blood Urea Nitrogen 8 mg/dL (9-20); Calcium 8.6 mg/dL (8.4-10.2); Carbon Dioxide 23 mmol/L (22-30); Chloride 109 mmol/L (98-107); Glucose 117 mg/dL (74-99); Non-African American GFR(CKD) >90 (>60 ml/min/1.73 sqM); Potassium 3.8 mmol/L (3.5-5.1); Sodium 139 mmol/L (137-145)
[2022-02-01] MEDS: ATORVASTATIN 40 MG TAB PO SCH (08:47)
[2022-02-01] MEDS: ASPIRIN 81 MG PO SCH (08:47)
[2022-02-01] MEDS: METOPROLOL SUCCINATE (ER) 50 MG TAB.ER.24H PO SCH (08:47)
[2022-02-01] MEDS: ISOSORBIDE MONONITRATE ER 30 MG TAB.ER.24H PO SCH (08:47)
[2022-02-01] MEDS: HYDROcodone/APAP 10-325MG 1 EACH TAB PO SCH (08:47)
[2022-02-01] MEDS: KETOROLAC 15 MG/ML 1 ML VIAL IVP PRN (08:51)
[2022-02-01 08:55] VITALS: RESP 18; TEMP 97.7
--- NOTE | 2022-02-01 09:52 | P.PN ---
Subjective PROGRESS NOTE The patient is a 61-year-old male with a known history of CAD status post stenting of the RCA in 2014 who has not been followed in a while who presented was heart rate variation and chest discomfort. He had minimal troponin elevation and underwent cardiac catheterization, was found to have chronically occluded RCA with mild disease in the ostium of the left circumflex and moderate disease in the OM 1. He is feeling better today, he has no chest discomfort but he has chronic dyspnea on exertion. He is in sinus mechanism. He denies any dizziness or palpitations. He denies any nausea. He has not been ambulating. January 31: He is feeling better overall but continues to have some palpitations although on the monitor he is in sinus mechanism. He denies any chest discomfort. He is ambulating without significant symptoms. He denies any dizziness or syncope. His echocardiogram showed an ejection fraction of 50-55% with mild mitral and tricuspid regurgitation. 02/01 Patient seen and examined. He denies any further chest pain or pressure. Denies any shortness breath. Has been walking the halls without any difficulty. Prior echo showed EF 50-55%. Denies any lightheadedness or dizziness. PHYSICAL EXAMINATION: Vitals reviewed LUNGS: Clear to auscultation HEART: Regular rate and rhythm, S1, S2. No S3. systolic ejection murmur ABDOMEN: Soft, nontender, no organomegaly EXTREMETIES: No edema, right groin no hematoma IMPRESSION: 1. Coronary disease with chronically occluded RCA with collaterals from the l eft system 2. History of chronic tobacco use 3. History of chronic alcohol intake 4. Arrhythmia, in sinus since admission 5. Elevated triglyceride could be related to the alcohol intake 6. Hyperlipidemia PLAN: Continue with current medical therapy. NIGHT COORDINATOR well collateralized and continue with medical antianginals. Continue Lipitor and close outpatient follow-up with Dr. Katz in one week. Appears stable for discharge home today. Objective - Vital Signs Vital signs: Vital Signs Temp 97.7 F 02/01/22 08:43 Pulse 61 02/01/22 08:43 Resp 18 02/01/22 08:43 BP 148/87 02/01/22 08:43 Pulse Ox 97 02/01/22 08:43 FiO2 Intake & Output 01/31/22 02/01/22 02/01/22 18:59 06:59 18:59 Intake Total 237 Output Total 200 Balance 37 Intake: Oral 237 Output: Urine 200 Other: Voiding Method Toilet Toilet Urinal Urinal # Voids 2 1 - Labs CBC & Chem 7: 01/28/22 22:00 02/01/22 07:17 Labs: Abnormal Lab Results - Last 24 Hours (Table) 01/31/22 02/01/22 Range/Units 09:37 07:17 Chloride 108 H 109 H (98-107) mmol/L BUN 7 L 8 L (9-20) mg/dL Glucose 125 H 117 H (74-99) mg/dL
[2022-02-01 11:16] VITALS: BP 137/69; PULSE 55
--- NOTE | 2022-02-03 04:04 | P.DS ---
Providers Date of admission: 01/28/22 23:10 Expected date of discharge: 02/01/22 Attending physician: Sudeep Shane Consults: 01/28/22 23:10 Consult Physician Routine Consulting Provider: Marin Walton Consult Reason/Comments: chest pain. elevated troponin Do you want consulting provider notified?: Yes Primary care physician: Mahamed English MD Hospital Course: Final diagnosis -Chest pain, possible non-ST elevation myocardial infarction: Patient was evaluated by cardiology patient had a cardiac catheterization which showed chronic occlusion of RCA with collaterals and will follow with Dr. Katz in one week -Ischemic cardiomyopathy congestive heart failure with EF of around 40-545% chronic without any acute exacerbation at this time -Hypertension -Hyperlipidemia -Alcohol abuse history and drinks alcohol daily with no signs of withdrawals at this time -Continue nicotine use: Excessive counseling was provided regarding this -Hypokalemia, improved -Benign prostatic hypertrophy -DVT prophylaxis Discharge disposition Patient is being discharged in a stable condition with guarded prognosis to home. Patient will follow-up with Dr. English in the outpatient setting upon discharge. Patient is to continue with maximizing medical management and following up with cardiology Dr. Katz as scheduled. Total time taken is greater than 35 minutes. Hospital course This is a 61-year-old male who was recently admitted with chest pain and being monitored closely by cardiology underwent catheterization and has chronic right occlusive disease and will need outpatient follow-up and will be following up with cardiology Dr. Katz in one week. Cardiology following the patient recommending maximizing medical management at this time. Please refer to cardiology notes for further HPI. Patient reports to feeling improved and would like to home. Currently no reports of chest pain, shortness of breath, or palpitations. Patient is afebrile. No reports of nausea or vomiting and patient is tolerating diet. Patient will be discharged home today. Guarded prognosis Physical exam: Gen: This is a 61-year-old male awake, alert and oriented 3, well-developed, well-nourished, obese HEENT: Head is atraumatic, normocephalic. Pupils equal, round. Sclerae is anicteric. NECK: Supple. No JVD. No lymphadenopathy. No thyromegaly. LUNGS: Clear to auscultation. No wheezes or rhonchi. No intercostal retractions. HEART: Regular rate and rhythm. No murmur. ABDOMEN: Soft. Obese. Bowel sounds are present. No masses. No tenderness. EXTREMITIES: No pedal edema. No calf tenderness. NEUROLOGICAL: Patient is awake, alert and oriented x3. Cranial nerves 2 through 12 are grossly intact. Please refer to medication reconciliation sheet for a list of medications. The impression and plan of care has been dictated by Trice Castellano, Nurse Practitioner as directed. Dr. Beatriz MD I have performed a history and examination and MDM of this patient, discussed the same with the dictator, and agree with the dictator's assessment and plan as written ,documented as a scribe. Based on total visit time, I have performed more than 50% of the visit. Patient Condition at Discharge: Fair Plan - Discharge Summary Discharge Rx Participant: No New Discharge Prescriptions: New Nitroglycerin Sl Tabs [Nitrostat] 0.4 mg SUBLINGUAL Q5M PRN #30 tab PRN Reason: Chest Pain Isosorbide Mononitrate ER [Imdur] 30 mg PO DAILY #30 tab Atorvastatin [Lipitor] 40 mg PO DAILY #30 tab Continue Omeprazole [PriLOSEC] 20 mg PO DAILY allopurinoL [Zyloprim] 600 mg PO DAILY Metoprolol Succinate (ER) [Toprol XL] 50 mg PO DAILY Aspirin EC [Ecotrin Low Dose] 81 mg PO DAILY HYDROcodone/APAP 10-325MG [[place] 10-325] 1 tab PO TID lisinopriL [Zestril] 2.5 mg PO DAILY Levothyroxine Sodium [Synthroid] 200 mcg PO AC-BRKFST Albuterol Inhaler [Ventolin Hfa Inhaler] 1 - 2 puff INHALATION RT-QID PRN PRN Reason: Shortness Of Breath Discontinued Rosuvastatin Calcium [Crestor] 2.5 mg PO DAILY Discharge Medication List Omeprazole [PriLOSEC] 20 mg PO DAILY 09/30/14 [History] allopurinoL [Zyloprim] 600 mg PO DAILY 09/30/14 [History] Aspirin EC [Ecotrin Low Dose] 81 mg PO DAILY 08/20/16 [History] HYDROcodone/APAP 10-325MG [[place] 10-325] 1 tab PO TID 08/20/16 [History] Metoprolol Succinate (ER) [Toprol XL] 50 mg PO DAILY 08/20/16 [History] lisinopriL [Zestril] 2.5 mg PO DAILY 08/20/16 [History] Levothyroxine Sodium [Synthroid] 200 mcg PO AC-BRKFST 09/12/19 [History] Albuterol Inhaler [Ventolin Hfa Inhaler] 1 - 2 puff INHALATION RT-QID PRN 01/29/22 [History] Atorvastatin [Lipitor] 40 mg PO DAILY #30 tab 01/31/22 [Rx] Isosorbide Mononitrate ER [Imdur] 30 mg PO DAILY #30 tab 01/31/22 [Rx] Nitroglycerin Sl Tabs [Nitrostat] 0.4 mg SUBLINGUAL Q5M PRN #30 tab 01/31/22 [Rx] Follow up Appointment(s)/Referral(s): Ailin Katz MD [STAFF PHYSICIAN] - 1 Week (Office will call you with an appointment date/time--they must get your records first.) Mahamed English MD [Primary Care Provider] - 02/16/22 10:40 am (PHONE VISIT PER PATIENT REQUEST. Phone number: .) Patient Instructions/Handouts: Heart Catheterization (DC) Activity/Diet/Wound Care/Special Instructions: Activity Limited until follow-up Follow-up with primary care provider on discharge Follow-up with your gastroenterologist after scheduled appointment Continue taking medications as prescribed Continue heart healthy diet Discharge Disposition: HOME SELF-CARE
== END 2022-02-01 12:25 | disposition home or self-care (01) | DRG 282 ==
LOC: EC 20:45 → 3SCARD 23:10
PROVIDERS: ADMIT Hospitalist; ATTEND Hospitalist
PROC: 4A023N7 Measurement of Cardiac Sampling and Pressure, Left Heart, Percutaneous Approach (ICD-10-PCS; principal; 2022-01-29 17:20)
PROC: B2111ZZ Fluoroscopy of Multiple Coronary Arteries using Low Osmolar Contrast (ICD-10-PCS; principal; 2022-01-29 17:20)
DX: I21.4 Non-ST elevation (NSTEMI) myocardial infarction (principal); N40.0 Benign prostatic hyperplasia without lower urinary tract symptoms; I25.5 Ischemic cardiomyopathy; I50.9 Heart failure, unspecified; I25.10 Atherosclerotic heart disease of native coronary artery without angina pectoris; M10.9 Gout, unspecified; E78.1 Pure hyperglyceridemia; I11.0 Hypertensive heart disease with heart failure; F17.200 Nicotine dependence, unspecified, uncomplicated; F10.10 Alcohol abuse, uncomplicated; E87.6 Hypokalemia; E78.5 Hyperlipidemia, unspecified; Z95.5 Presence of coronary angioplasty implant and graft; Z85.46 Personal history of malignant neoplasm of prostate; Z85.028 Personal history of other malignant neoplasm of stomach; Z79.899 Other long term (current) drug therapy; Z79.890 Hormone replacement therapy; Z79.82 Long term (current) use of aspirin; I25.2 Old myocardial infarction; Z71.6 Tobacco abuse counseling
CPT/HCPCS: 36415; 71046; 80048; 80053; 80061; 81003; 83721; 83735; 84484; 85025; 85610; 85730; 93005; 93306; 93458; 94760; 96365; 96366; 96375; 96376; 99291

== ENCOUNTER → 2022-02-23 | Outpatient (CLI) | payer OTHER ==
[2022-02-24 05:11] LABS: ALT 37 U/L (10-49); AST 33 U/L (14-35); Albumin 4.7 g/dL (3.8-4.9); Albumin/Globulin Ratio 1.77 (1.60-3.17); Alkaline Phosphatase 78 U/L (41-126); Bilirubin,Unconjugated 0.43 mg/dL (0.20-1.00); Chol/HDL Ratio 3.22 Ratio; Globulin 2.6 g/dL (1.6-3.3); LDL Cholesterol,Calculated 42.4 mg/dL (0.0-131.0); Total Protein 7.3 g/dL (6.2-8.2)
== END | disposition home or self-care (01) ==
LOC: LABWHC1 15:28
PROVIDERS: ATTEND Internal Medicine
DX: E78.5 Hyperlipidemia, unspecified (principal)
CPT/HCPCS: 36415; 80061; 80076